=== PATIENT | male | born 1945 | race Caucasian/White ===

== ENCOUNTER → 2019-08-06 | Outpatient (CLI) | payer MEDICARE, OTHER ==
[~2019-08-06] MED LIST: ASPI-875 PO; CITA40TA19 PO; CYAN10007 PO; MULT-963 PO; OLME5TAB3 PO; OMEP40CA36 PO; PRAV40TA PO; VITA100T6 PO
== END ==
LOC: CARD 13:34
PROVIDERS: ATTEND Physician Assistant
DX: I51.7 Cardiomegaly (principal); I65.29 Occlusion and stenosis of unspecified carotid artery; I10 Essential (primary) hypertension; E78.2 Mixed hyperlipidemia; I27.0 Primary pulmonary hypertension
CPT/HCPCS: 93306

== ENCOUNTER → 2019-08-07 | Outpatient (CLI) | payer MEDICARE, OTHER ==
--- NOTE | 2019-08-07 13:03 | Diagnostic Imaging Report ---
INDICATION: History of renal calculi. Follow-up. COMPARISON: None. FINDINGS: Two frontal radiographic views of the abdomen were obtained and demonstrate nondistended loops of small bowel. There is no large collection of free intraperitoneal air. Multiple extraosseous rounded calcifications are noted in the right upper abdominal quadrant, but these appear to reside lateral to the renal shadow. No unexpected radiopaque foreign bodies are seen. Osseous structures show no acute abnormalities. IMPRESSION: 1. Extraosseous calcifications in the right upper abdominal quadrant, which are felt to be on the basis of debris within the large or small bowel. Cholelithiasis is also a consideration. 2. No definite renal calculi. 3. Nonobstructive small bowel gas pattern. Dictated by: Dictated on workstation # [id number]
== END ==
LOC: RAD FS 11:15
PROVIDERS: ATTEND Urology
DX: Z87.442 Personal history of urinary calculi (principal)
CPT/HCPCS: 74018

== ENCOUNTER → 2019-09-07 | Outpatient (CLI) | payer MEDICARE, OTHER ==
[~2019-09-07] VITALS: Ht 170 cm; Wt 87.0 kg
[~2019-09-07] MED LIST changes: +CATHETER FLUSH 10 ML SYR IV PRN
[2019-09-07 09:50] VITALS: BP 145/71
[2019-09-07 09:59] VITALS: BP 129/70
--- NOTE | 2019-09-07 17:02 | STRESS TEST ---
DATE OF SERVICE: 09/07/2019 EXERCISE MYOVIEW STRESS TEST REPORT REFERRING PHYSICIAN: Dr. Yap and Dr. Marshall. Baseline heart rate is 56. Baseline blood pressure 150/77. Baseline EKG is sinus rhythm with no ischemic changes. In summary, the patient was injected with 10.13 mCi of technetium-99 Myoview and the resting images were obtained. Then, the patient started exercising with a baseline heart rate, blood pressure and EKG mentioned above. The patient was able to exercise for a total of 7 minutes 20 seconds on standard Ulices protocol. With peak exercise level, EKG was showing minimal nondiagnostic changes. Blood pressure was 200/79. During recovery, heart rate and blood pressure returned to baseline. EKG returned to baseline. The resting and stress images were reviewed and compared in the short axis, horizontal long axis, and vertical long axis views. Review of the images showed diaphragmatic attenuation with no significant ischemia or infarction. SSS is 2, SDS 2, TID value 1.03. On the gated images, the left ventricle appeared to be normal size with normal contractility. Calculated ejection fraction 63%. CONCLUSION: 1. Fair exercise tolerance, a total of 7 minutes 20 seconds on standard Ulices protocol, total of 8.9 METS achieving 93% of maximum expected heart rate. 2. Severe hypertensive response to exercise with peak blood pressure 200/79 returned to baseline during recovery. 3. Nondiagnostic EKG changes with exercise returned to baseline during recovery. 4. Diaphragmatic attenuation with no significant ischemia or infarction on SPECT images. 5. Normal left ventricular size with normal contractility. Calculated ejection fraction 63%. Job ID: [id number] DocumentID: [id number] Dictated Date: 09/07/2019 12:33:34 Home Appliances Mechanic Date: 09/07/2019 17:01:28 Dictated By: DOUGLAS COLLINS MD
== END ==
LOC: CARD 07:51
PROVIDERS: ATTEND Physician Assistant
DX: I65.23 Occlusion and stenosis of bilateral carotid arteries (principal); E78.2 Mixed hyperlipidemia; I27.0 Primary pulmonary hypertension
CPT/HCPCS: 78452; 93017

== ENCOUNTER → 2020-08-05 | Outpatient (CLI) | payer MEDICARE, OTHER ==
[~2020-08-05] MED LIST changes: -CATHETER FLUSH 10 ML SYR IV PRN
--- NOTE | 2020-08-05 11:49 | Diagnostic Imaging Report ---
INDICATION: HX OF KIDNEY STONES. TECHNIQUE: 2 supine views of the abdomen 10:12 AM CORRELATION STUDY: 08/07/2019 FINDINGS: Multiple calcifications of the right upper quadrant are again demonstrated. Given the persistent nature, may be reflective of perhaps gallstones or, less likely, granulomas within the liver. No definitive calcification in unexpected location of the right renal silhouette. There are small calcifications over the inferior pole of the left kidney, 4 mm in size. Overlying bowel gas pattern appears nonobstructed. IMPRESSION: 1. Probable small stone over the inferior pole of the left kidney. 2. Calcifications in the right upper quadrant are again demonstrated. Given persistent nature, favors perhaps gallstones or perhaps hepatic granulomas. One of these does project over the superior pole of the right kidney. Dictated by: Dictated on workstation # [id number]
== END ==
LOC: RAD FS 10:08
PROVIDERS: ATTEND Urology
DX: N28.89 Other specified disorders of kidney and ureter (principal); Z87.442 Personal history of urinary calculi
CPT/HCPCS: 74018

== ENCOUNTER → 2020-08-17 | Outpatient (CLI) | payer MEDICARE, OTHER ==
--- NOTE | 2020-08-17 13:48 | Diagnostic Imaging Report ---
INDICATION: Palpable lump right breast. COMPARISON: 10/12/2013. TECHNIQUE: Unilateral right 2D and 3D diagnostic mammography was performed with CAD. FINDINGS: There is a moderate amount of fibroglandular tissue in the retroareolar right breast, consistent with gynecomastia. No discrete mass is seen. There is milder gynecomastia in the retroareolar left breast which was obtained for comparison purposes. No suspicious microcalcifications are seen. IMPRESSION: Probable gynecomastia in the retroareolar right breast. Even so, an ultrasound of this area is recommended and will be performed today. ACR BI-RADS Category 0: Incomplete. (Needs additional imaging evaluation). Result letter will be mailed to the patient. Note: At least 10% of breast cancer is not imaged by mammography. Dictated by: Dictated on workstation # [id number]
--- NOTE | 2020-08-17 14:04 | Diagnostic Imaging Report ---
INDICATION: Right breast lump. COMPARISON: Correlation is made with the diagnostic mammogram from earlier this same day. FINDINGS: Sonographic interrogation of the retroareolar right breast was performed. There is an ill-defined area of hypoechogenicity, most consistent with gynecomastia. No discrete mass is seen. IMPRESSION: Findings are most suggestive of gynecomastia. ACR BI-RADS Category 2: Benign findings. Result letter will be mailed to the patient. Note: At least 10% of breast cancer is not imaged by mammography. Dictated by: Dictated on workstation # [id number]
== END ==
LOC: RAD 13:15
PROVIDERS: ATTEND Family Medicine
DX: N63.10 Unspecified lump in the right breast, unspecified quadrant (principal)
CPT/HCPCS: 76642; 77065; G0279

== ENCOUNTER → 2021-02-03 | Outpatient (CLI) | payer MEDICARE, OTHER ==
--- NOTE | 2021-02-03 15:30 | Diagnostic Imaging Report ---
INDICATION: Follow-up of nephrolithiasis. TECHNIQUE: Single supine view of the abdomen 11:05 AM CORRELATION STUDY: 08/05/2020. FINDINGS: Large amount of overlying bowel gas and stool obscures detail. Multiple calcifications of the right upper quadrant are again demonstrated. Overall generally stabilized position. These are somewhat indeterminate but appear to be largely outside the renal silhouette and could be perhaps gallstones or additional soft tissue calcifications. The previously noted small calcification in the inferior pole of left kidney is not visualized at follow-up. Mild loss of height, particularly the L1 vertebral body. Advanced degenerative changes of bilateral hips. IMPRESSION: 1. Calcifications of the right upper quadrant overall appear unchanged. Likely outside the renal silhouette could be reflective of gallstones or alternative areas of calcification. 2. Previously noted calcifications over the inferior pole of left kidney not visualized at follow-up. Dictated by: Dictated on workstation # [id number]
== END ==
LOC: RAD FS 10:51
PROVIDERS: ATTEND Urology
DX: N28.89 Other specified disorders of kidney and ureter (principal)
CPT/HCPCS: 74018

== ENCOUNTER → 2021-10-06 | Outpatient (CLI) | payer MEDICARE, OTHER ==
--- NOTE | 2021-10-06 15:09 | Diagnostic Imaging Report ---
INDICATION: Follow up kidney stones. TIME OF EXAM: 11:20 AM. COMPARISON: Correlation is made with prior abdominal radiograph from 02/03/2021. Right upper quadrant calcifications appear to be similar to prior exam. The more medially located calcific density appears to overlie the renal shadow and may represent a renal calculus. The more laterally located calcifications are indeterminate but could potentially be in the gallbladder. No left-sided urinary tract calculi are seen. The bowel gas pattern is unremarkable. IMPRESSION: Stable KUB when compared to exam from 02/03/2021. Dictated by: Dictated on workstation # [id number]
== END ==
LOC: RAD FS 11:09
PROVIDERS: ATTEND Urology
DX: N20.0 Calculus of kidney (principal)
CPT/HCPCS: 74018

== ENCOUNTER 2021-12-06 20:37 | Outpatient (CLI) | payer MEDICARE, OTHER | END 2021-12-07 06:19 | disposition home or self-care (01) | LOC: SLEEP 20:37 | PROVIDERS: ATTEND Otolaryngology Otolaryngology/Facial Plastic Surgery | DX: G47.33 Obstructive sleep apnea (adult) (pediatric) (principal); G47.31 Primary central sleep apnea | CPT/HCPCS: 95811 ==

== ENCOUNTER → 2022-01-15 | Outpatient (CLI) | payer MEDICARE, OTHER ==
[~2022-01-15] MED LIST changes: +RT-ALBUTEROL SULF 2.5 MG/3 ML PRE-MIX VIAL INH ONE
--- NOTE | 2022-01-15 14:12 | Diagnostic Imaging Report ---
Indication: Cough and shortness of breath PA and lateral chest Heart size and pulmonary vascularity are normal. Lungs are clear. There are no effusions or pneumothoraces. IMPRESSION: No acute abnormalities in the chest Dictated by: Dictated on workstation # [id number]
== END ==
LOC: RT 13:55
PROVIDERS: ATTEND Nurse Practitioner Family
DX: R05.9 Cough, unspecified (principal); R06.02 Shortness of breath; R06.00 Dyspnea, unspecified
CPT/HCPCS: 71046; 94060; 94726; 94729

== ENCOUNTER → 2022-03-30 | Outpatient (CLI) | payer MEDICARE, OTHER ==
[~2022-03-30] MED LIST changes: -RT-ALBUTEROL SULF 2.5 MG/3 ML PRE-MIX VIAL INH ONE
--- NOTE | 2022-03-30 14:05 | Diagnostic Imaging Report ---
PROCEDURE: CT sinuses without contrast TECHNIQUE: Multiple contiguous axial images were obtained through the sinuses without the use of intravenous contrast. Coronal and sagittal reformations were then performed. Auto Exposure Controls were utilized during the CT exam to meet ALARA standards for radiation dose reduction. INDICATION: Chronic sinusitis. FINDINGS: There is some mucosal thickening of the frontal sinus. There is opacification of multiple bilateral ethmoid air cells. Minimal mucosal disease of the sphenoid sinus is seen. Left maxillary sinus is hypoplastic. There is some minimal mucosal thickening of bilateral maxillary sinuses. No air-fluid levels are seen. Mastoids are well aerated. There is thickening in the ostiomeatal complexes bilaterally. Nasal septum is midline. There is a jennifer bullosa on the right. IMPRESSION: Paranasal sinus mucosal disease. No air-fluid levels are identified. Dictated by: Dictated on workstation # [id number]
== END ==
LOC: RAD FS 09:59
PROVIDERS: ATTEND Otolaryngology Otolaryngology/Facial Plastic Surgery
DX: J32.9 Chronic sinusitis, unspecified (principal)
CPT/HCPCS: 70486

== ENCOUNTER → 2022-07-20 | Outpatient (CLI) | payer MEDICARE, OTHER ==
[~2022-07-20] MED LIST changes: +CATHETER FLUSH 10 ML SYR IV PRN; +HOLD METFORMIN - RECEIVED CONTRAST 20 ML VIAL IV SCH; +IOHEXOL 350 MG/ML 100 ML (OMNIPAQUE 350) VIAL IV ONE; +NS 100 ML (IVPB) BAG IV ONE
[2022-07-20 09:29] LABS: CREATININE SERUM 0.97 MG/DL (0.60-1.30)
--- NOTE | 2022-07-20 10:52 | Diagnostic Imaging Report ---
PROCEDURE: CT chest with contrast only. TECHNIQUE: Multiple contiguous axial images were obtained through the chest after administration of intravenous contrast. Auto Exposure Controls were utilized during the CT exam to meet ALARA standards for radiation dose reduction. INDICATION: Chronic cough. COMPARISON: Chest radiograph 01/15/2022. FINDINGS: Mild biapical scarring. Lungs are otherwise clear. No pleural effusion or pneumothorax. No endobronchial lesions. No pleural effusion or pneumothorax. Normal heart size. No pericardial effusion. No lymphadenopathy. Advanced coronary artery calcifications. Chronic left clavicle fracture. Compression fracture of T12 resulting in approximately 50% height loss is stable compared to 01/15/2022. Gynecomastia on the right. Cholelithiasis without secondary findings of cholecystitis. Nonobstructing renal stones in the partially visualized kidneys bilaterally. IMPRESSION: 1. No acute CT findings in the chest. Mild biapical scarring. 2. Cholelithiasis without cholecystitis. 3. Advanced coronary artery calcifications. 4. Chronic fractures of the left clavicle and T12. No acute osseous findings. 5. Gynecomastia. Dictated by: Dictated on workstation # [id number]
== END ==
LOC: LAB FS 08:47
PROVIDERS: ATTEND Family Medicine
DX: I25.10 Atherosclerotic heart disease of native coronary artery without angina pectoris (principal); K80.20 Calculus of gallbladder without cholecystitis without obstruction; N62 Hypertrophy of breast; R05.3 Chronic cough
CPT/HCPCS: 36415; 71260; 82565; 84520; Q9967

== ENCOUNTER → 2022-10-11 | Outpatient (CLI) | payer MEDICARE, OTHER ==
[~2022-10-11] MED LIST changes: -CATHETER FLUSH 10 ML SYR IV PRN; -HOLD METFORMIN - RECEIVED CONTRAST 20 ML VIAL IV SCH; -IOHEXOL 350 MG/ML 100 ML (OMNIPAQUE 350) VIAL IV ONE; -NS 100 ML (IVPB) BAG IV ONE
== END ==
LOC: LAB FS 16:15
PROVIDERS: ATTEND Otolaryngology Otolaryngology/Facial Plastic Surgery
DX: E03.9 Hypothyroidism, unspecified (principal)
CPT/HCPCS: 36415; 84443

== ENCOUNTER → 2022-11-02 | Outpatient (CLI) | payer MEDICARE, OTHER | LOC: CARD 11:08 | PROVIDERS: ATTEND Family Medicine | DX: I10 Essential (primary) hypertension (principal); I25.10 Atherosclerotic heart disease of native coronary artery without angina pectoris | CPT/HCPCS: 93306 ==

== ENCOUNTER 2022-12-20 20:25 | Emergency (ER) | payer MEDICARE, OTHER ==
[~2022-12-20] VITALS: Ht 170 cm; Wt 82.5 kg
[2022-12-20 20:44] LABS: BASOPHILS % (AUTO) 0 % (0-10); EOSINOPHILS # (AUTO) 0.4 10^3/uL (0.0-0.3); EOSINOPHILS % (AUTO) 2 % (0-10); HEMATOCRIT 39 % (40-54); HEMOGLOBIN 13.7 g/dL (13.3-17.7); LYMPHOCYTES # (AUTO) 1.7 10^3/uL (1.0-4.0); LYMPHOCYTES % (AUTO) 10 % (12-44); MEAN CORPUSCULAR HEMOGLOBIN 33 pg (25-34); MEAN CORPUSCULAR HGB CONC 35 g/dL (32-36); MEAN CORPUSCULAR VOLUME 94 fL (80-99); MEAN PLATELET VOLUME 8.5 fL (9.0-12.2); MONOCYTES # (AUTO) 0.5 10^3/uL (0.0-1.0); MONOCYTES % (AUTO) 3 % (0-12); NEUTROPHILS # (AUTO) 13.2 10^3/uL (1.8-7.8); NEUTROPHILS % (AUTO) 84 % (42-75); PLATELET COUNT 253 10^3/uL (130-400); WHITE BLOOD COUNT 15.8 10^3/uL (4.3-11.0)
[2022-12-20] MEDS ORDERED: KETOROLAC 15 MG/ML VIAL IVP STA (20:44)
[2022-12-20] MEDS ORDERED: hydrALAZINE (APESOLINE) 20 MG/ML VIAL IV STA (20:44)
[2022-12-20] MEDS ORDERED: PANTOPRAZOLE 40 MG (PROTONIX) VIAL IV STA (20:44)
[2022-12-20 20:45] LABS: BILIRUBIN,URINE NEGATIVE (NEGATIVE); CLARITY,URINE CLEAR; COLOR,URINE YELLOW; GLUCOSE, URINE (UA) NEGATIVE (NEGATIVE); KETONES,URINE NEGATIVE (NEGATIVE); LEUKOCYTE ESTERASE ,URINE NEGATIVE (NEGATIVE); NITRITE,URINE NEGATIVE (NEGATIVE); PH,URINE 6.5 (5-9); PROTEIN,URINE NEGATIVE (NEGATIVE)
[2022-12-20 20:52] LABS: BACTERIA,URINE NEGATIVE /HPF; SQUAMOUS EPITHELIAL CELL,UR RARE /HPF; WBC,URINE RARE /HPF
--- NOTE | 2022-12-20 21:00 | ED Abdominal Pain ---
General Chief Complaint: Abdominal/GI Problems Stated Complaint: CONGESTION,ABD PAIN,HIGH BP Source of Information: Patient History of Present Illness Date Seen by Provider: Dec 20, 2022 Time Seen by Provider: 20:31 Initial Comments 77-year-old male presenting with complaints of abdominal discomfort that started at 1400 today. He denies doing anything to cause the pain to start. He cannot be more specific about what the pain is when asked if it was sharp cramping dull aching pressure or to describe what the pain was he started describing that he area of his abdomen concerning but again would never give any details about the type of pain. Even with prompting he still would never answer the type of pain. He was asked if he had pain like this before and he said never for this long but then asked if he had the pain in the past but it usually went away he said no. He denies having headache or change in his vision, no chest pain no shortness of breath. He states that the pain is in the middle of his belly and does not radiate into his chest or into his back. He states that it is approximately a 5 inch diameter. He has had some mild nausea but no vomiting. He stated eating and drinking did not make the pain any different. Movement and palpation does not make any difference on the pain. He denies having any pain or burning with urination. He has no complaints of diarrhea. He denies fever or chills. Timing/Duration: 4-6 Hours Severity/Quality: Moderate, Other (patient refuses to describe the pain and just says its a "discomfort") Location: Epigastric, Periumbilical Radiation: No Radiation Activities at Onset: None Associated Symptoms: Back Pain (chronic back pain); No Chest Pain, No Diaphoresis, No Fever/Chills, No Fatigue, No Headache, No Heartburn, No Rash, No Shortness of Air, No Swelling/Mass in Abdomen, No Syncope, No Weakness Allergies and Home Medications Allergies Coded Allergies: naproxen (Unverified Allergy, Unknown, 09/07/19) Patient Home Medication List Home Medication List Reviewed: Yes Aspirin (Coal Aspirin) 81 Mg Tablet.dr 81 MG PO DAILY, (Reported) Entered as Reported by: MEHDI GARCIA on 12/02/12 1244 Citalopram Hydrobromide (Celexa) 40 Mg Tablet, 1 EACH PO DAILY, (Reported) Entered as Reported by: MEHDI GARCIA on 12/02/12 124 Cyanocobalamin (Vitamin B12) 1,000 Mcg Tablet.sa, 1,000 MCG PO, (Reported) Entered as Reported by: MEHDI GARCIA on 12/02/121243 Multivitamin (Multi-Vitamin Daily) 1 Each Tablet, 1 EACH PO, (Reported) Entered as Reported by: MEHDI GARCIA on 12/02/12 124 Olmesartan Medoxomil (Benicar) 5 Mg Tablet, 1 EACH PO 2 tabs daily, (Reported) Entered as Reported by: MEHDI GARCIA on 12/02/12 124 Omeprazole (Omeprazole) 40 Mg Capsule.dr, 40 MG PO 2 tabs daily, (Reported) Entered as Reported by: MEHDI GARCIA on 12/02/121243 Pravastatin Sodium (Pravachol) 40 Mg Tablet, 40 MG PO DAILY, (Reported) Entered as Reported by: MEHDI GARCIA on 12/02/121243 Vitamin E Acid Succinate (Vitamin E) 100 Unit Tablet, 100 UNIT PO, (Reported) Entered as Reported by: MEHDI GARCIA on 12/02/121243 Review of Systems Review of Systems Constitutional: No chills, No fever EENTM: No Symptoms Reported Respiratory: No Symptoms Reported Cardiovascular: No Symptoms Reported Gastrointestinal: See HPI Genitourinary: Denies Flank Pain, Denies Pain Musculoskeletal: see HPI Skin: No change in color Psychiatric/Neurological: No Symptoms Reported Past Acnlfvp-Mqlemu-Lvdgpm Hx Past Medical History Surgery/Hospitalization HX: Hypertension Physical Exam Vital Signs Vital Signs - First Documented 12/20/22 20:37 Temp 36.2 Pulse 54 Resp 18 B/P (MAP) 197/74 (115) Pulse Ox 95 O2 Delivery Room Air Capillary Refill : Height/Weight/BMI Height: '" Weight: lbs. oz. kg; 30.10 BMI Method: General Appearance: WD/WN, no apparent distress Respiratory: chest non-tender, lungs clear, normal breath sounds, no respiratory distress, no accessory muscle use Cardiovascular: normal peripheral pulses, regular rate, rhythm Gastrointestinal: normal bowel sounds, non tender, soft, no pulsatile mass Extremities: normal range of motion, normal capillary refill Neurologic/Psychiatric: alert Skin: normal color, warm/dry Progress/Results/Core Measures Results/Orders Lab Results Laboratory Tests Test 12/20/22 20:28 12/20/22 20:38 12/20/22 21:20 Range/Units Urine Color YELLOW Urine Clarity CLEAR Urine pH 6.5 5-9 Urine Specific [place] 1.020 1.016-1.022 Urine Protein NEGATIVE NEGATIVE Urine Glucose (UA) NEGATIVE NEGATIVE Urine Ketones NEGATIVE NEGATIVE Urine Nitrite NEGATIVE NEGATIVE Urine Bilirubin NEGATIVE NEGATIVE Urine Urobilinogen 0.2 < = 1.0 MG/DL Urine Leukocyte Esterase NEGATIVE NEGATIVE Urine RBC (Auto) NEGATIVE NEGATIVE Urine RBC NONE /HPF Urine WBC RARE /HPF Urine Squamous Epithelial Cells RARE /HPF Urine Crystals NONE /LPF Urine Bacteria NEGATIVE /HPF Urine Casts NONE /LPF Urine Mucus NEGATIVE /LPF Urine Culture Indicated NO White Blood Count 15.8 H 4.3-11.0 10^3/uL Red Blood Count 4.16 L 4.30-5.52 10^6/uL Hemoglobin 13.7 13.3-17.7 g/dL Hematocrit 39 L 40-54 % Mean Corpuscular Volume 94 80-99 fL Mean Corpuscular Hemoglobin 33 25-34 pg Mean Corpuscular Hemoglobin Concent 35 32-36 g/dL Red Cell Distribution Width 12.1 10.0-14.5 % Platelet Count 253 130-400 10^3/uL Mean Platelet Volume 8.5 L 9.0-12.2 fL Immature Granulocyte % (Auto) 0 % Neutrophils (%) (Auto) 84 H 42-75 % Lymphocytes (%) (Auto) 10 L 12-44 % Monocytes (%) (Auto) 3 0-12 % Eosinophils (%) (Auto) 2 0-10 % Basophils (%) (Auto) 0 0-10 % Neutrophils # (Auto) 13.2 H 1.8-7.8 10^3/uL Lymphocytes # (Auto) 1.7 1.0-4.0 10^3/uL Monocytes # (Auto) 0.5 0.0-1.0 10^3/uL Eosinophils # (Auto) 0.4 H 0.0-0.3 10^3/uL Basophils # (Auto) 0.0 0.0-0.1 10^3/uL Immature Granulocyte # (Auto) 0.1 0.0-0.1 10^3/uL Neutrophils % (Manual) 75 % Lymphocytes % (Manual) 17 % Monocytes % (Manual) 3 % Eosinophils % (Manual) 3 % Basophils % (Manual) 0 % Band Neutrophils 2 % Sodium Level 134 L 135-145 MMOL/L Potassium Level 4.0 3.6-5.0 MMOL/L Chloride Level 100 98-107 MMOL/L Carbon Dioxide Level 24 21-32 MMOL/L Anion Gap 10 5-14 MMOL/L Blood Urea Nitrogen 8 7-18 MG/DL Creatinine 0.98 0.60-1.30 MG/DL Estimat Glomerular Filtration Rate 79 BUN/Creatinine Ratio 8 Glucose Level 135 H 70-105 MG/DL Calcium Level 9.0 8.5-10.1 MG/DL Corrected Calcium 8.9 8.5-10.1 MG/DL Total Bilirubin 0.4 0.1-1.0 MG/DL Aspartate Amino Transf (AST/SGOT) 20 5-34 U/L Alanine Aminotransferase (ALT/SGPT) 13 0-55 U/L Alkaline Phosphatase 124 40-136 U/L Total Protein 7.1 6.4-8.2 GM/DL Albumin 4.1 3.2-4.5 GM/DL Lipase 18 8-78 U/L Influenza Type A (RT-PCR) Not Detected Not Detecte Influenza Type B (RT-PCR) Not Detected Not Detecte SARS-CoV-2 RNA (RT-PCR) Not Detected Not Detecte My Orders Orders - LAHSELL SIMMONS MD Comprehensive Metabolic Panel (12/20/22 20:29) Lipase (12/20/22 20:29) Ua Culture If Indicated (12/20/22 20:29) Ed Iv/Invasive Line Start (12/20/22 20:29) Cbc With Automated Diff (12/20/22 20:29) Covid 19 Inhouse Test (12/20/22 20:29) Influenza A And B By Pcr (12/20/22 20:29) Ct Abdomen/Pelvis W (12/20/22 20:44) Hydralazine Injection (Apresoline Inject (12/20/22 20:44) Pantoprazole Injection (Protonix Injecti (12/20/22 20:44) Ketorolac Injection (Toradol Injection) (12/20/22 20:44) Manual Differential (12/20/22 20:38) Iohexol Injection (Omnipaque 350 Mg/Ml 1 (12/20/22 21:15) Received Contrast (Hold Metformin- Contr (12/20/22 21:15) Sodium Chloride Flush (Catheter Flush Sy (12/20/22 21:15) Ns (Ivpb) (Sodium Chloride 0.9% Ivpb Bag (12/20/22 21:15) Medications Given in ED Current Medications Medications Dose Ordered Sig/Librado Route Start Time Stop Time Status Last Admin Dose Admin Iohexol 80 ml ONCE ONCE IV 12/20/22 21:15 12/20/22 21:16 DC 12/20/22 21:42 80 ML Sodium Chloride 10 ml NEEDED PRN IV 12/20/22 21:15 12/20/22 22:36 DC 12/20/22 21:43 10 ML Sodium Chloride 100 ml ONCE ONCE IV 12/20/22 21:15 12/20/22 21:16 DC 12/20/22 21:42 100 ML Vital Signs/I&O 12/20/22 12/20/22 20:37 22:25 Temp 36.2 36.8 Pulse 54 79 Resp 18 20 B/P (MAP) 197/74 (115) 110/69 Pulse Ox 95 96 O2 Delivery Room Air Room Air Progress Progress Note #1: Progress Note Potential diagnosis of gastritis, constipation, colitis, diverticulitis, ischemic colitis, peptic ulcer disease. Obtain peripheral IV access and send labs for complete blood count, comprehensive metabolic profile, lipase, urinalysis. Obtain a CT scan of the abdomen and pelvis with IV contrast looking for signs of ischemic bowel, diverticulitis, colitis, constipation. Normal saline 1 L IV fluid bolus for hydration, Protonix 40 mg IV for possible gastritis, Toradol 15 mg IV for abdominal pain and inflammation. Progress Note #2: Progress Note 2117 complete blood count shows elevated white blood cell count of 15.8 thousand. Hemoglobin was not showing anemia as it was at 13.7. There was a slight left shift with 75% neutrophils, 17 lymphocytes, 2% bands. Comprehensive metabolic profile did not show any acute significant abnormality to account for his abdominal discomfort. His creatinine was normal at 0.98. Glucose was slightly elevated at 135. Lipase was normal at 18. Liver enzymes were not elevated. Urinalysis showed specific gravity of 1.020. There is no nitrites, leukocyte esterase, bacteria to indicate UTI. After hydralazine blood pressure was down to 150/73. Progress Note #3: Time: 22:[address] scanning of the abdomen and pelvis read by the radiologist shows findings concerning for acute cholecystitis with a 7 mm stone in the cystic duct. There is gallbladder wall thickening and mild pericholecystic fluid. His liver enzymes are not elevated and his pain is now down to a 0. I called and spoke with the on-call surgeon, Dr. Castano. After reviewing the patient's presentation and his elevated white blood cell count with normal LFTs and findings on CT concerning for a gallstone in the cystic duct and some inflammation of the gallbladder he advised if the patient was having continued pain he could be admitted for pain control and plan on surgery tomorrow. Otherwise he could go home and have nothing to eat or drink after midnight and then call the office in the morning and he could be seen or they could arrange for him to have surgery tomorrow with he was still having pain and concerns otherwise it could be scheduled next week sometime or when it was convenient for him. If his pain worsens or return nature he has uncontrolled nausea and vomiting then he should be seen again as he may need to stay overnight for having pain control and surgery. When reviewing options with the patient he stated since his pain was gone now he would like to go home. They will call the office in the morning and see about follow-up and when to get surgery done. Diagnostic Imaging Diagonstic Imaging: CT Plain Films/CT/US/NM/MRI: abdomen, pelvis Comments [facility], [place] NAME: JOY WALKER Mitzy [facility] REC#: [id number] PT STATUS: REG ER : 1945 PHYSICIAN: LASHELL SIMMONS MD ADMIT DATE: 12/20/22/ER FS Signed Date of Exam:12/20/22 CT ABDOMEN/PELVIS W PROCEDURE: CT abdomen and pelvis with contrast. TECHNIQUE: Multiple contiguous axial images were obtained through the abdomen and pelvis after administration of intravenous contrast. Auto Exposure Controls were utilized during the CT exam to meet ALARA standards for radiation dose reduction. All CT scans use one or more of the following dose optimizing techniques: automated exposure control, MA and/or KvP adjustment based on patient size and exam type or iterative reconstruction. INDICATION: Epigastric and periumbilical pain. FINDINGS: There is mild linear atelectasis and/or scarring in the lung bases. No focal hepatic, pancreatic, adrenal gland, splenic or renal abnormality is identified. There are multiple stones present within the gallbladder including in the neck. Additional calculus of approximately 0.7 cm in diameter appears to reside within the cystic duct. There is gallbladder wall thickening and pericholecystic fluid. Mild intrahepatic biliary ductal dilatation is also suspected. Stomach appears mildly thickened although this could be due to incomplete distention. There is no evidence of free fluid within the abdomen or pelvis. Numerous sigmoid diverticula are present without associated inflammation. Bladder is incompletely distended which limits evaluation. There are surgical findings at the prostate gland. There is mild compression deformity of T12 vertebral body without hematoma suggesting its a chronic finding. IMPRESSION: 1. Findings are suggestive of acute cholecystitis likely due to cystic duct obstruction. There may be secondary biliary ductal dilatation as well. This could be related to previous stone passage. 2. There is also gastric mural thickening suggestive of possible gastritis which could be in the setting of peptic ulcer disease. Dictated by: Dictated on workstation # [id number] Dict: 12/20/222152 Trans: 12/20/222204 [facility] [id number] Interpreted by: SHERON ANDRADE MD Electronically signed by: SHERON ANDRADE MD 12/20/222204 Reviewed: Reviewed by Me Departure Impression Primary Impression: Cholecystitis with cholelithiasis Qualified Codes: K80.42 - Calculus of bile duct with acute cholecystitis without obstruction Additional Impressions: Periumbilical abdominal pain Elevated blood pressure reading with diagnosis of hypertension Disposition: 01 HOME, SELF-CARE Condition: Improved Departure-Patient Inst. Decision time for Depature: 22:17 Referrals: PATRICIA CASTANO PANKAJ K MD (PCP/Family) Primary Care Physician Patient Instructions: Gallstones ED, High Blood Pressure ED, Gallbladder Diet Add. Discharge Instructions: Nothing to eat or drink after midnight and call Dr. Castano in the morning to see when he wants to have the gallbladder removed. If you are still having pain or your symptoms are worsening then they could do surgery tomorrow, otherwise he can schedule surgery for you as an outpatient and have you follow a low fat bland diet until you have surgery. All discharge instructions reviewed with patient and/or family. Voiced understanding. LASHELL SIMMONS MD Dec 20, 2022 21:00
[2022-12-20 21:02] LABS: BAND NEUTROPHILS 2 %; BASOPHILS % (MANUAL) 0 %; EOSINOPHILS % (MANUAL) 3 %; LYMPHOCYTES % (MANUAL) 17 %; MONOCYTES % (MANUAL) 3 %; NEUTROPHILS % (MANUAL) 75 %
[2022-12-20 21:04] LABS: ALBUMIN 4.1 GM/DL (3.2-4.5); BILIRUBIN,TOTAL 0.4 MG/DL (0.1-1.0); CREATININE SERUM 0.98 MG/DL (0.60-1.30); TOTAL PROTEIN 7.1 GM/DL (6.4-8.2)
[2022-12-20] MEDS ORDERED: NS 100 ML (IVPB) BAG IV ONE (21:15)
[2022-12-20] MEDS ORDERED: IOHEXOL 350 MG/ML 100 ML (OMNIPAQUE 350) VIAL IV ONE (21:15)
[2022-12-20] MEDS ORDERED: HOLD METFORMIN - RECEIVED CONTRAST 20 ML VIAL IV SCH (21:15)
[2022-12-20] MEDS: CATHETER FLUSH 10 ML SYR IV PRN ×2 (21:42→21:43)
--- NOTE | 2022-12-20 22:00 | Diagnostic Imaging Report ---
PROCEDURE: CT abdomen and pelvis with contrast. TECHNIQUE: Multiple contiguous axial images were obtained through the abdomen and pelvis after administration of intravenous contrast. Auto Exposure Controls were utilized during the CT exam to meet ALARA standards for radiation dose reduction. All CT scans use one or more of the following dose optimizing techniques: automated exposure control, MA and/or KvP adjustment based on patient size and exam type or iterative reconstruction. INDICATION: Epigastric and periumbilical pain. FINDINGS: There is mild linear atelectasis and/or scarring in the lung bases. No focal hepatic, pancreatic, adrenal gland, splenic or renal abnormality is identified. There are multiple stones present within the gallbladder including in the neck. Additional calculus of approximately 0.7 cm in diameter appears to reside within the cystic duct. There is gallbladder wall thickening and pericholecystic fluid. Mild intrahepatic biliary ductal dilatation is also suspected. Stomach appears mildly thickened although this could be due to incomplete distention. There is no evidence of free fluid within the abdomen or pelvis. Numerous sigmoid diverticula are present without associated inflammation. Bladder is incompletely distended which limits evaluation. There are surgical findings at the prostate gland. There is mild compression deformity of T12 vertebral body without hematoma suggesting its a chronic finding. IMPRESSION: 1. Findings are suggestive of acute cholecystitis likely due to cystic duct obstruction. There may be secondary biliary ductal dilatation as well. This could be related to previous stone passage. 2. There is also gastric mural thickening suggestive of possible gastritis which could be in the setting of peptic ulcer disease. Dictated by: Dictated on workstation # [id number]
[2022-12-20 22:25] VITALS: BP 110/69
[2022-12-21] MEDS ORDERED: ATOR10TA PO (10:39)
[2022-12-21] MEDS ORDERED: BUSP5TAB59 PO (10:39)
[2022-12-21] MEDS ORDERED: LOSA1TAB20 PO (10:39)
[2022-12-21] MEDS ORDERED: MIRA50TA PO (10:39)
[2022-12-21] MEDS ORDERED: OMEP20CA18 PO (10:39)
[2022-12-21] MEDS ORDERED: IBUP200C11 PO (10:39)
[2022-12-21] MEDS ORDERED: ESCI20TA PO (10:39)
[2022-12-21] MEDS ORDERED: CETI10CA PO (10:39)
[2022-12-21] MEDS ORDERED: ACHD5005 PO (12:30)
== END 2022-12-20 22:25 | disposition home or self-care (01) ==
LOC: EDUNIT# 20:25 → ER FS 20:26
DX: K80.10 Calculus of gallbladder with chronic cholecystitis without obstruction (principal); I10 Essential (primary) hypertension; Z20.822 Contact with and (suspected) exposure to COVID-19
CPT/HCPCS: 36415; 74177; 80053; 81000; 83690; 85007; 85027; 87636

== ENCOUNTER 2022-12-21 09:45 | Day surgery (SDC) | payer MEDICARE, OTHER ==
[2022-12-21] VITALS (12 sets, daily range): BP systolic 144–185; BP diastolic 72–90
[~2022-12-21] VITALS: Ht 170.2 cm; Wt 82.3 kg
[2022-12-21] MEDS ORDERED: ceFAZolin INJECTION 2,000 MG in NS (IVPB) 50 ML IV ONE (10:15)
[2022-12-21] MEDS: LACTATED RINGERS 1,000 ML IV PRN ×2 (10:16→13:16)
[2022-12-21] MEDS ORDERED: BUP/EPI 0.25% 1:200,000 (MARCAINE) 30 ML VIAL ONE (10:19)
[2022-12-21] MEDS ORDERED: BUP/EPI 0.25% 1:200,000 (MARCAINE) 30 ML VIAL INJ ONE (10:28)
[2022-12-21] MEDS: IOHEXOL 300 MG/ML 30 ML (OMNIPAQUE 300) VIAL INJ ONE ×2 (10:30→11:49)
[2022-12-21] MEDS ORDERED: CETI10CA PO (10:39)
[2022-12-21] MEDS ORDERED: ATOR10TA PO (10:39)
[2022-12-21] MEDS ORDERED: ESCI20TA PO (10:39)
[2022-12-21] MEDS ORDERED: BUSP5TAB59 PO (10:39)
[2022-12-21] MEDS ORDERED: ROCURONIUM 50 MG/5 ML (ZEMURON) VIAL IV ONE (10:39)
[2022-12-21] MEDS ORDERED: OMEP20CA18 PO (10:39)
[2022-12-21] MEDS ORDERED: ONDANSETRON 4 MG/2 ML (SDV) Z0FRAN ONE ×2 (10:39→14:15)
[2022-12-21] MEDS ORDERED: SEVOFLURANE (ULTANE) 15 ML INHAL SOLN ONE ×2 (10:39→12:14)
[2022-12-21] MEDS ORDERED: IBUP200C11 PO (10:39)
[2022-12-21] MEDS ORDERED: proPOfol 200 MG/20 ML (DIPRIVAN) VIAL IV ONE (10:39)
[2022-12-21] MEDS ORDERED: MIRA50TA PO (10:39)
[2022-12-21] MEDS ORDERED: LOSA1TAB20 PO (10:39)
[2022-12-21] MEDS ORDERED: LIDOCAINE PF 2% 5 ML (XYLOCAINE) VIAL ONE (10:39)
[2022-12-21] MEDS ORDERED: fentaNYL INJ 100 MCG/2 ML AMP ONE (10:40)
[2022-12-21] MEDS ORDERED: MIDAZOLAM 2 MG/2 ML (VERSED) VIAL ONE (10:40)
[2022-12-21] MEDS ORDERED: NEOSTIGMINE (BLOXIVERZ ) 1 MG/1ML 10 ML VIAL ONE (12:07)
[2022-12-21] MEDS ORDERED: GLYCOPYRROLATE 0.2 MG/ML (ROBINUL) 2 ML VIAL ONE (12:07)
--- NOTE | 2022-12-21 12:27 | Progress Note-Post Operative ---
Post-Operative Progess Note Surgeon (s)/Component Assembler Supervisor (s) Surgeon PATRICIA CASTANO DO Component Assembler Supervisor: Layton Pre-Operative Diagnosis CHOLELITHIASIS Post-Operative Diagnosis Acute Cholecystitis/Cholelithiasis with Cystic duct obstruction Procedure & Operative Findings Date of Procedure 12/21/22 Procedure Performed/Findings PROCEDURE: Laparoscopic cholecystectomy with intraoperative cholangiogram. COMPLICATIONS: None. PROCEDURE: The patient was taken to the operating suite and was prepped and draped in sterile fashion. A surgical pause was performed. Just superior to the umbilicus, a 12 mm incision was made. Dissection was taken down to the fascia, which was then scored and grasped with a Marion and the abdomen was then entered. An 0-Vicryl suture was placed in a arkvhx-ob-gvzhq fashion and a Brandt trocar was placed and secured. Pneumoperitoneum was achieved. A 5mm trochar place in the subxyphoid and 2 in the right upper quadrant. The gallbladder was then noted to be very edematous and erythematous. It was grasped at the fundus and taken in the superior direction. There was a lot of edema and fat around Goodwin's pouch which was grasped and taken in the infero-lateral direction. The cystic duct and cystic artery were then dissected out. Clip was placed on the distal portion of the cystic duct which was then partially transected. Had to then carefully tease out a large stone that was obstructing the cystic duct. Once I had gotten it out an arrow catheter was inserted into the duct. The cholangiogram was then performed. No filling defects and contrast made its way up the CBD, left and right hepatic and into the duodenum. Catheter was then removed and clips were placed on proximal portion of the cystic duct and then the duct was then transected. Clips were placed along the proximal and distal portion of the cystic artery which was then transected. I encountered a posterior branch of the cystic artery and it was also clipped. The upper grasper made a hole in the gallbladder and some purulent bile leaked out. Hook cautery was used to dissect the gallbladder from the gallbladder fossa achieving hemostasis. The gallbladder was placed in an Endobag and removed through the 12 mm trocar site. The abdomen was then reinspected. Copious amounts of irrigation were used to irrigate the abdomen and there were no signs of active bleeding. Hemostasis had been achieved. I looked around and found bilateral indirect inguinal hernias; picture taken. The 12 mm fascial defect was then closed with 0 Vicryl suture that had been placed in a [id number]-if-tvhak fashion. The abdomen was then desufflated, the trocars were removed. The abdomen was then washed and dried. The skin was then closed using 4-0 Monocryl in a subcuticular fashion. The abdomen was washed and dried and Skin Affix was place over incisions. Patient tolerated the procedure well without any complications and was taken to the recovery room in stable condition. Layton assisted on this case helping to make incisions, close incisions, identify anatomy and hold anatomy out of the way. Anesthesia Type GET Estimated Blood Loss Estimated blood loss (mL): scant Specimens/Packing Specimens Removed GB and contents PATRICIA CASTANO DO Dec 21, 2022 12:27
--- NOTE | 2022-12-21 12:29 | Anesthesia-General Post-Op ---
General Patient Condition Mental Status/LOC: Same as Preop Cardiovascular: Satisfactory Nausea/Vomiting: Absent Respiratory: Satisfactory Pain: Controlled Complications: Absent Post Op Complications Complications None Follow Up Care/Instructions Patient Instructions None needed. Anesthesia/Patient Condition Patient Condition Patient is doing well, no complaints, stable vital signs, no apparent adverse anesthesia problems. No complications reported per nursing. ROSALIND MIKE CRNA Dec 21, 2022 12:29
[2022-12-21] MEDS ORDERED: MEPERIDINE (DEMEROL) INJ 50 MG/ML IVP ONE (12:30)
[2022-12-21] MEDS ORDERED: ACHD5005 PO (12:30)
[2022-12-21] MEDS ORDERED: fentaNYL INJ 100 MCG/2 ML AMP IVP ONE (12:30)
--- NOTE | 2022-12-21 12:33 | Discharge Inst-Surgical ---
Discharge Inst-Surgical Depart Medication/Instructions New, Converted or Re-Newed RX: Transmitted to Pharmacy Patient Instructions Follow up Appt: Make appointment for 1 week. [phone] Instructions: No lifting greater than 20 pounds. No strenuous activity. May shower in 24 hours, no tub bath or soaking. Use incentive spirometer at home as directed. No Smoking Skin/Wound Care: May remove bandages in am. You need to leave the Dermabond on incision it will fall off on it's own. Symptoms to Report: Appetite Changes, Extremity Discoloration, Numbness/Tingling, Swelling Increased, Bleeding Excessive, Eyesight Changes, Pain Increased, Urine Color Change, Constipation(Persistent), Fever over 101 degree F, Pain/Pressure in chest, Urinating Difficulty, Cough Up/Vomit Blood, Heart Beat Irreg/Pounding, Pain/Pressure in jaw, Cramps in feet or legs, Lightheadedness, Pain/Pressure in shoulder, Diarrhea(Persistent), Memory Changes Suddenly, Questions/Concerns, Weight gain consecutive days, Dizziness/Fainting, Nausea/Vomiting, Shortness of Breath, Weight gain over 2 pounds If questions or concerns contact your physician Or seek help at emergency department. Activity Activity as Tolerated: Yes Activity Instructions: Avoid Stress to Incision Driving Instructions: No Driving/Refer to Diet Discharge Diet: Avoid Fatty Foods, Low Fat/Low Cholesterol If Any Problems/Questions/Issu: Contact Your Physician, Go to Emergency Room Skin/Wound Care Infection Signs and Symptoms: Increased Redness, Foul Odor of Wound, Increased Drainage, Skin Itchy or Has a Rash, Increased Swelling, Temperature Above 101 F Wound Care Comment: heating pad to shoulder or neck for pain tonight Bathing Instructions: Shower Stitches/Neymar/Dermabond Dis: Dermabond Ice Pack: Ice On and Off Site PATRICIA CASTANO DO Dec 21, 2022 12:33
[2022-12-21] MEDS: ONDANSETRON 4 MG/2 ML (SDV) Z0FRAN IVP PRN ×2 (12:47→13:06)
[2022-12-21] MEDS ORDERED: ONDANSETRON 4 MG/2 ML (SDV) Z0FRAN IVP ONE (14:15)
[2022-12-21] MEDS ORDERED: HYDROcodone/APAP 5 MG/325 MG (LORTAB) TAB PO ONE (15:00)
[2022-12-21] MEDS ORDERED: HYDROcodone/APAP 5 MG/325 MG (LORTAB) TAB ONE (15:02)
--- NOTE | 2022-12-21 15:26 | Diagnostic Imaging Report ---
INDICATION: Cholecystectomy. Operative cholangiogram performed in the routine fashion. 20.6 seconds of fluoroscopy time was used. 111 images were obtained. FINDINGS: Contrast injection demonstrates injection of the cystic duct stump. There is some extravasation at the injection site. There are no filling defects in the common bile duct; contrast passes to the duodenum without obstruction. IMPRESSION: Unremarkable operative cholangiogram. Dictated by: Dictated on workstation # [id number]
[2022-12-21] MEDS ORDERED: KETOROLAC 30 MG/ML VIAL ONE (15:27)
== END 2022-12-21 16:25 ==
LOC: SDC 09:45
PROVIDERS: ATTEND Surgery
DX: K80.12 Calculus of gallbladder with acute and chronic cholecystitis without obstruction (principal); G47.33 Obstructive sleep apnea (adult) (pediatric); E66.9 Obesity, unspecified; Z68.28 Body mass index [BMI] 28.0-28.9, adult; Z87.891 Personal history of nicotine dependence; Z99.81 Dependence on supplemental oxygen
CPT/HCPCS: 76000; 87081; 88304

== ENCOUNTER 2023-01-07 11:26 | Inpatient (IN) | payer MEDICARE, OTHER ==
[~2023-01-07] VITALS: Ht 172.7 cm; Wt 73.5 kg
[~2023-01-07 11:26] MED LIST changes: +ACHD5005 PO; +ATOR10TA PO; +BUSP5TAB59 PO; +CETI10CA PO; +ESCI20TA PO; +IBUP200C11 PO; +LOSA1TAB20 PO; +MIRA50TA PO; +OMEP20CA18 PO
[2023-01-07] MEDS ORDERED: NS IV 1000 ML 1,000 ML IV STA ×2 (11:56→14:06)
--- NOTE | 2023-01-07 12:01 | ED General ---
General Chief Complaint: General Problems/Pain Stated Complaint: POST OP GALL BLADDER 12/21/22 | WEAKNESS Nursing Triage Note: PT AMB TO ED BY POV WITH C/O DECREASED APETITE, FATIGUE, AND WEAKNESS. PT HAD ANGELA ON 12/21 AND HAS HAD THESE SX SINCE. DENIES PAIN, FEVER, URINARY SX, N/V, SOB. LBM TODAY, NORMAL FOR PT. REPORTS PT HAS ONLY BEEN EATING A FEW SALTINE CRACKERS A DAY. Source of Information: Patient Exam Limitations: No Limitations History of Present Illness Date Seen by Provider: January 07, 2023 Time Seen by Provider: 11:58 Initial Comments Patient is a 77-year-old male who presents to ED with decreased appetite, fatigue and weakness. Patient had his gallbladder removed December 21. This was performed by Dr. Castano. Since the surgery he has had significant decrease in intake. According to not wanting to eat. Patient ate saltine crackers for the first 2 to 3 days. Started to drink maybe 1-2 protein shakes daily. Has not wanting to drink much water or Pedialyte. He has had some mild right sided upper abdominal pain but no pain today. No fever. At night according to patient is just wanting to lie down and sleep. Seems slightly confused at night but patient is tired. States he is urinating without any difficulties. Denies cough, chest pain, shortness of breath, headache or dizziness. States he did have a soft bowel movement yesterday. Patient denies fever, vomiting, dysuria, hematuria Allergies and Home Medications Allergies Coded Allergies: naproxen (Unverified Allergy, Unknown, 09/07/19) Patient Home Medication List Home Medication List Reviewed: Yes Aspirin (Aspirin EC) 81 Mg Tablet.dr, 81 MG PO HS, (Reported) Entered as Reported by: DORIAN FUENTES on 01/07/231552 Last Action: Reviewed Atorvastatin Calcium (Atorvastatin Calcium) 10 Mg Tablet, 10 MG PO HS, (Repo rted) Entered as Reported by: DORIAN FUENTES on 01/07/231552 Last Action: Reviewed B Complex with Vitamin C (Super B with Vit C) 1 Each Capsule, 1 EACH PO DAILY, (Reported) Entered as Reported by: DORIAN FUENTES on 01/07/231552 Last Action: Reviewed Cetirizine HCl (Zyrtec) 10 Mg Capsule, 10 MG PO HS, (Reported) Entered as Reported by: PHIL KENNEDY on 12/21/221038 Last Action: Reviewed Cholecalciferol (Vitamin D3) (Vitamin D3) 50 Mcg (2000 Unit) Tablet, 50 MCG PO DAILY, (Reported) Entered as Reported by: DORIAN FUENTES on 01/07/231552 Last Action: Reviewed Escitalopram Oxalate (Escitalopram Oxalate) 20 Mg Tablet, 20 MG PO HS, (Reported) Entered as Reported by: DORIAN FUENTES on 01/07/231552 Last Action: Reviewed Lactobacillus Acidophilus ([place] Acidophilus) 20 Billion Cell Capsule, 1 EACH PO HS, (Reported) Entered as Reported by: DORIAN FUENTES on 01/07/231552 Last Action: Reviewed Losartan Potassium (Losartan Potassium) 50 Mg Tablet, 50 MG PO HS, (Reported) Entered as Reported by: DORIAN FUENTES on 01/07/231552 Last Action: Reviewed Mirabegron (Myrbetriq) 50 Mg Tab.er.24h, 50 MG PO HS, (Reported) Entered as Reported by: PHIL KENNEDY on 12/21/221038 Last Action: Reviewed Multivitamin (Multivitamin) 1 Each Tablet, 1 EACH PO DAILY, (Reported) Entered as Reported by: DORIAN FUENTES on 01/07/231552 Last Action: Reviewed Omeprazole (Omeprazole) 20 Mg Capsule., 20 MG PO DAILY, (Reported) Entered as Reported by: PHIL KENNEDY on 12/21/221038 Last Action: Reviewed Discontinued Medications Aspirin ([place] Aspirin) 81 Mg Tablet., 81 MG PO DAILY, (Reported) Discontinued Reason: Duplicate Order Entered as Reported by: MEHDI GARCIA on 12/02/12 1244 Last Action: Discontinued Atorvastatin Calcium (Lipitor) 10 Mg Tablet, 10 MG PO HS, (Reported) Discontinued Reason: Duplicate Order Entered as Reported by: PHIL KENNEDY on 12/21/221038 Last Action: Discontinued Buspirone HCl (Buspirone HCl) 5 Mg Tablet, 5 MG PO DAILY, (Reported) Discontinued Reason: Duplicate Order Entered as Reported by: PHIL KENNEDY on 12/21/221038 Last Action: Discontinued Cyanocobalamin (Vitamin B12) 1,000 Mcg Tablet.sa, 1,000 MCG PO, (Reported) Discontinued Reason: Duplicate Order Entered as Reported by: MEHDI GARCIA on 12/02/12 124 Last Action: Discontinued Escitalopram Oxalate (Lexapro) 20 Mg Tablet, 20 MG PO DAILY, (Reported) Discontinued Reason: Duplicate Order Entered as Reported by: PHIL KENNEDY on 12/21/22 1039 Last Action: Discontinued Hydrocodone/Acetaminophen (Hydrocodone-Acetamin 5-325 mg) 5 Mg-325 Mg Tablet, 1 TAB PO Q8H PRN for PAIN-MODERATE (5-7) Discontinued Reason: Duplicate Order Prescribed by: PATRICIA CASTANO on 12/21/22 1231 Last Action: Discontinued Ibuprofen (Advil) 200 Mg Capsule, 200 MG PO PRN, (Reported) Discontinued Reason: Duplicate Order Entered as Reported by: PHIL KENNEDY on 12/21/22 1039 Last Action: Discontinued Losartan/Hydrochlorothiazide (Losartan-Hctz 50-12.5 mg Tab) 50 Mg-12.5 Mg Tablet, 1 EACH PO DAILY, (Reported) Discontinued Reason: Duplicate Order Entered as Reported by: PHIL KENNEDY on 12/21/22 1039 Last Action: Discontinued Multivitamin (Multi-Vitamin Daily) 1 Each Tablet, 1 EACH PO, (Reported) Discontinued Reason: Duplicate Order Entered as Reported by: MEHDI GARCIA on 12/02/121243 Last Action: Discontinued Vitamin E Acid Succinate (Vitamin E) 100 Unit Tablet, 100 UNIT PO, (Reported) Discontinued Reason: Duplicate Order Entered as Reported by: MEHDI GARCIA on 12/02/121243 Last Action: Discontinued Review of Systems Review of Systems Constitutional: No chills, No diaphoresis; malaise, weakness EENTM: No ear pain, No blurred vision, No double vision, No dental problems, No mouth pain, No mouth swelling, No throat pain, No throat swelling Respiratory: No cough, No dyspnea on exertion, No short of breath Cardiovascular: No chest pain Gastrointestinal: abdominal pain; No diarrhea, No nausea, No vomiting Genitourinary: No decreased output, No discharge Musculoskeletal: No back pain, No joint pain Skin: No change in color, No change in hair/nails All Other Systems Reviewed Negative Unless Noted: Yes Past Fgswlrc-Ibeyhw-Ypeilx Hx Patient Social History Tobacco Use?: No Use of E-Cig and/or Vaping dev: No Substance use?: No Alcohol Use?: No Pt feels they are or have been: No Immunizations Up To Date Influenza Vaccine Up-to-Date: Yes; Up-to-Date First/Initial COVID19 Vaccinat: X4 Second COVID19 Vaccination Andrew: X4 Third COVID19 Vaccination Date: X4 Seasonal Allergies Seasonal Allergies: Yes Past Medical History Surgery/Hospitalization HX: Hypertension ANGELA Surgeries: Yes Bladder Surgery, Orthopedic Respiratory: Yes Sleep Apnea, COPD Currently Using CPAP: Yes Hypertension Neurological: No Sexually Transmitted Disease: No Genitourinary: Yes (urolift) Kidney Stones Gastrointestinal: Yes Gall Bladder Disease Fractures Endocrine: No HEENT: Yes Cataract Loss of Vision: Denies Hearing Impairment: Hearing Aide Right, Hearing Aide Left Cancer: No Psychosocial: Yes ADD/ADHD, Depression Integumentary: No Blood Disorders: No Adverse Reaction/Blood Tranf: No Physical Exam Vital Signs Vital Signs - First Documented 01/07/23 11:42 Temp 36.6 Pulse 90 Resp 16 B/P (MAP) 137/71 (93) Pulse Ox 95 O2 Delivery Room Air Capillary Refill : Less Than 3 Seconds Height, Weight, BMI Height: '" Weight: lbs. oz. kg; 26.00 BMI Method: General Appearance: No Apparent Distress, WD/WN Eyes: Bilateral Eye Normal Inspection, Bilateral Eye PERRL, Bilateral Eye EOMI HEENT: PERRL/EOMI, TMs Normal, Normal ENT Inspection, Pharynx Normal Neck: Full Range of Motion, Normal Inspection, Non Tender, Supple Respiratory: Chest Non Tender, Lungs Clear, Normal Breath Sounds, No Accessory Muscle Use, No Respiratory Distress Cardiovascular: Regular Rate, Rhythm, No Edema, No Gallop, No JVD Gastrointestinal: Normal Bowel Sounds, No Organomegaly, Non Tender, Soft, Other (Healing surgical wounds to the abdomen. No surrounding redness or swelling. Soft abdomen) Back: Normal Inspection, No CVA Tenderness, No Vertebral Tenderness Extremity: Normal Capillary Refill, Normal Inspection, Normal Range of Motion, Non Tender Neurologic/Psychiatric: Alert, Oriented x3, No Motor/Sensory Deficits, Normal Mood/Affect, global compensation analyst II-XII Norm as Tested Skin: Normal Color, Warm/Dry Focused Exam Lactate Level 01/07/23 13:53: Lactic Acid Level 0.92 Lactic Acid Level Laboratory Tests Test 01/07/23 13:53 Lactic Acid Level 0.92 MMOL/L (0.50-2.00) Progress/Results/Core Measures Suspected Sepsis SIRS Temperature: Pulse: 90 Respiratory Rate: 16 Laboratory Tests 01/07/23 12:00: White Blood Count 18.6H Blood Pressure 137 /71 Mean: 93 01/07/23 13:53: Lactic Acid Level 0.92 Laboratory Tests 01/07/23 12:00: Creatinine 0.87, Platelet Count 472H, Total Bilirubin 0.9 01/07/23 14:38: INR Comment 1.2 Results/Orders Lab Results Laboratory Tests Test 01/07/23 12:00 01/07/23 12:10 01/07/23 13:53 01/07/23 14:38 Range/Units White Blood Count 18.6 H 4.3-11.0 10^3/uL Red Blood Count 3.25 L 4.30-5.52 10^6/uL Hemoglobin 10.6 L 13.3-17.7 g/dL Hematocrit 31 L 40-54 % Mean Corpuscular Volume 94 80-99 fL Mean Corpuscular Hemoglobin 33 25-34 pg Mean Corpuscular Hemoglobin Concent 35 32-36 g/dL Red Cell Distribution Width 12.2 10.0-14.5 % Platelet Count 472 H 130-400 10^3/uL Mean Platelet Volume 8.2 L 9.0-12.2 fL Immature Granulocyte % (Auto) 1 % Neutrophils (%) (Auto) 88 H 42-75 % Lymphocytes (%) (Auto) 5 L 12-44 % Monocytes (%) (Auto) 7 0-12 % Eosinophils (%) (Auto) 0 0-10 % Basophils (%) (Auto) 0 0-10 % Neutrophils # (Auto) 16.3 H 1.8-7.8 10^3/uL Lymphocytes # (Auto) 0.9 L 1.0-4.0 10^3/uL Monocytes # (Auto) 1.2 H 0.0-1.0 10^3/uL Eosinophils # (Auto) 0.0 0.0-0.3 10^3/uL Basophils # (Auto) 0.0 0.0-0.1 10^3/uL Immature Granulocyte # (Auto) 0.1 0.0-0.1 10^3/uL Neutrophils % (Manual) 93 % Lymphocytes % (Manual) 3 % Monocytes % (Manual) 3 % Band Neutrophils 1 % Blood Morphology Comment NORMAL Sodium Level 129 L 135-145 MMOL/L Potassium Level 3.1 L 3.6-5.0 MMOL/L Chloride Level 95 L 98-107 MMOL/L Carbon Dioxide Level 22 21-32 MMOL/L Anion Gap 12 5-14 MMOL/L Blood Urea Nitrogen 16 7-18 MG/DL Creatinine 0.87 0.60-1.30 MG/DL Estimat Glomerular Filtration Rate 88 BUN/Creatinine Ratio 18 Glucose Level 121 H 70-105 MG/DL Calcium Level 8.6 8.5-10.1 MG/DL Corrected Calcium 9.5 8.5-10.1 MG/DL Magnesium Level 1.3 L 1.6-2.4 MG/DL Total Bilirubin 0.9 0.1-1.0 MG/DL Aspartate Amino Transf (AST/SGOT) 59 H 5-34 U/L Alanine Aminotransferase (ALT/SGPT) 49 0-55 U/L Alkaline Phosphatase 174 H 40-136 U/L Total Protein 6.5 6.4-8.2 GM/DL Albumin 2.9 L 3.2-4.5 GM/DL Lipase 22 8-78 U/L Urine Color YELLOW Urine Clarity CLEAR Urine pH 6.0 5-9 Urine Specific [place] 1.010 L 1.016-1.022 Urine Protein 1+ H NEGATIVE Urine Glucose (UA) NEGATIVE NEGATIVE Urine Ketones NEGATIVE NEGATIVE Urine Nitrite NEGATIVE NEGATIVE Urine Bilirubin NEGATIVE NEGATIVE Urine Urobilinogen 1.0 < = 1.0 MG/DL Urine Leukocyte Esterase NEGATIVE NEGATIVE Urine RBC (Auto) NEGATIVE NEGATIVE Urine RBC RARE /HPF Urine WBC RARE /HPF Urine Squamous Epithelial Cells RARE /HPF Urine Crystals PRESENT H /LPF Urine Amorphous Sediment RARE SHABANA URATES H /LPF Urine Bacteria NEGATIVE /HPF Urine Casts NONE /LPF Urine Mucus NEGATIVE /LPF Urine Culture Indicated NO Lactic Acid Level 0.92 0.50-2.00 MMOL/L Prothrombin Time 15.2 H 12.2-14.7 SEC INR Comment 1.2 0.8-1.4 My Orders Orders - JOSEPH SHEPHERD Cbc With Automated Diff (01/07/23 11:56) Comprehensive Metabolic Panel (01/07/23 11:56) Lipase (01/07/23 11:56) Magnesium (01/07/23 11:56) Chest 1 View, Ap/Pa Only (01/07/23 11:56) Ns Iv 1000 Ml (Sodium Chloride 0.9%) (01/07/23 11:56) Ua Culture If Indicated (01/07/23 11:56) Ct Abdomen/Pelvis W (01/07/23 11:56) Manual Differential (01/07/23 12:00) Iohexol Injection (Omnipaque 350 Mg/Ml 1 (01/07/23 12:30) Ns (Ivpb) (Sodium Chloride 0.9% Ivpb Bag (01/07/23 12:30) Blood Culture (01/07/23 13:35) Lactic Acid Analyzer (01/07/23 13:35) Blood Culture (01/07/23 13:40) Ed Admission (Communication) (01/07/23 13:57) Cefepime Injection (Maxipime Injection) (01/07/23 14:00) Potassium Cl 10meq/50ml Ivpb (Kcl 10 Meq (01/07/23 14:00) Ns Iv 1000 Ml (Sodium Chloride 0.9%) (01/07/23 14:06) Ns Iv 1000 Ml (Sodium Chloride 0.9%) (01/07/23 14:08) Medications Given in ED Current Medications Medications Dose Ordered Sig/Librado Route Start Time Stop Time Status Last Admin Dose Admin Cefepime HCl 1000 mg/Sodium Chloride 50 ml @ 100 mls/hr ONCE ONCE IV 01/07/23 14:00 01/07/23 14:29 DC 01/07/23 14:42 100 MLS/HR Iohexol 100 ml ONCE ONCE IV 01/07/23 12:30 01/07/23 12:32 DC 01/07/23 12:45 80 ML Potassium Chloride 50 ml @ 50 mls/hr ONCE ONCE IV 01/07/23 14:00 01/07/23 14:59 DC 01/07/23 14:41 50 MLS/HR Sodium Chloride 100 ml ONCE ONCE IV 01/07/23 12:30 01/07/23 12:32 DC 01/07/23 12:45 80 ML Vital Signs/I&O 01/07/23 11:42 Temp 36.6 Pulse 90 Resp 16 B/P (MAP) 137/71 (93) Pulse Ox 95 O2 Delivery Room Air Capillary Refill : Less Than 3 Seconds Blood Pressure Mean: 93 Departure Communication (PCP) Reviewed previous ER visits, H&P, lab testing, surgical notes. Patient had a cholecystectomy performed by Dr. Castano on December 21. Since the surgery has not been wanting to eat or drink. Decreased appetite. Some right-sided abdominal pain since the surgery but no specific pain today. No fever. No vomiting or diarrhea. On arrival patient vital signs stable. Denies of any specific cough. Has been using his spirometer. Denies feeling short of breath or having chest pain. On exam the soft abdomen. Surgical sites appear to be healing without evidence of cellulitis. Due to current complaint general lab work, chest x-ray CT abdomen and pelvis rule out postop complications, pneumonia. Urinalysis was ordered. CBC showed an elevated white blood count 18. Hemoglobin of 10.6 dropped from 13 on December 20. Elevated platelets. Chemistry showed sodium 131, chloride 97, potassium 3.1, magnesium 1.3. Patient was started on IV potassium 10 mill equivalent. Patient was given a liter of fluid initially. Patient was given a second liter of fluid. Chest x-ray concerning for right pleural effu jaquan versus pneumonia. CT abdomen and pelvis shows a complex subcapsular fluid collection with trace amounts of air and adjacent edema. Suspicious for infected collection. New small right pleural effusion. No obvious pleural thickening or loculation. There is subadjacent atelectasis in the right middle lower lobes. Pneumonia superimposed cannot be excluded. Patient Was started on cefepime for potential pneumonia. Patient was discussed with Dr. Castano general surgeon who saw patient here in the ER. Did not seem concerned that this was infected fluid collection. Dr. Castano did recommend a guided drainage of the fluid collection. This was discussed with Dr. Ackerman by Dr. Castano who may perform procedure today or tomorrow. Recommend starting antibiotic for pneumonia. Patient was discussed with Dr. DURANT who felt like this is more of a surgical case and wanted me to admit to Dr. Castano. Dr. Castano agreed to admit. Patient was given IV potassium 10 meq. Currently n.p.o. patient afebrile. No current pain at this time. magnesium oral supplement Impression Primary Impression: Pneumonia Additional Impressions: Intraabdominal fluid collection Hypokalemia Hypomagnesemia Disposition: ADMITTED INPATIENT Condition: Stable Admissions Decision to Admit Reason: Admit from ER (General) Decision to Admit/Date: January 07, 2023 Time/Decision to Admit Time: 13:39 Departure-Patient Inst. Referrals: KEENA ZEPEDA MD (PCP) Primary Care Physician MIKO DURANT MD (Family) Primary Care Physician JOSEPH SHEPHERD January 07, 2023 12:01
[2023-01-07 12:10] LABS: BASOPHILS % (AUTO) 0 % (0-10); EOSINOPHILS % (AUTO) 0 % (0-10); HEMATOCRIT 31 % (40-54); HEMOGLOBIN 10.6 g/dL (13.3-17.7); LYMPHOCYTES # (AUTO) 0.9 10^3/uL (1.0-4.0); LYMPHOCYTES % (AUTO) 5 % (12-44); MEAN CORPUSCULAR HEMOGLOBIN 33 pg (25-34); MEAN CORPUSCULAR HGB CONC 35 g/dL (32-36); MEAN CORPUSCULAR VOLUME 94 fL (80-99); MEAN PLATELET VOLUME 8.2 fL (9.0-12.2); MONOCYTES # (AUTO) 1.2 10^3/uL (0.0-1.0); MONOCYTES % (AUTO) 7 % (0-12); NEUTROPHILS # (AUTO) 16.3 10^3/uL (1.8-7.8); NEUTROPHILS % (AUTO) 88 % (42-75); PLATELET COUNT 472 10^3/uL (130-400); WHITE BLOOD COUNT 18.6 10^3/uL (4.3-11.0)
[2023-01-07 12:17] LABS: BILIRUBIN,URINE NEGATIVE (NEGATIVE); CLARITY,URINE CLEAR; COLOR,URINE YELLOW; GLUCOSE, URINE (UA) NEGATIVE (NEGATIVE); KETONES,URINE NEGATIVE (NEGATIVE); LEUKOCYTE ESTERASE ,URINE NEGATIVE (NEGATIVE); NITRITE,URINE NEGATIVE (NEGATIVE); PROTEIN,URINE 1+ (NEGATIVE)
[2023-01-07 12:20] LABS: ALBUMIN 2.9 GM/DL (3.2-4.5)
[2023-01-07 12:21] LABS: POTASSIUM 3.1 MMOL/L (3.6-5.0)
[2023-01-07 12:22] LABS: CALCIUM 8.6 MG/DL (8.5-10.1)
[2023-01-07 12:23] LABS: TOTAL PROTEIN 6.5 GM/DL (6.4-8.2)
[2023-01-07 12:25] LABS: BILIRUBIN,TOTAL 0.9 MG/DL (0.1-1.0)
[2023-01-07 12:27] LABS: CREATININE SERUM 0.87 MG/DL (0.60-1.30)
[2023-01-07 12:29] LABS: MAGNESIUM 1.3 MG/DL (1.6-2.4)
[2023-01-07] MEDS ORDERED: NS 100 ML (IVPB) BAG IV ONE (12:30)
[2023-01-07] MEDS ORDERED: IOHEXOL 350 MG/ML 100 ML (OMNIPAQUE 350) VIAL IV ONE (12:30)
[2023-01-07 12:34] LABS: AMORPHOUS SEDIMENT,UR RARE AMOR URATES /LPF; BACTERIA,URINE NEGATIVE /HPF; RBC,URINE RARE /HPF; SQUAMOUS EPITHELIAL CELL,UR RARE /HPF; WBC,URINE RARE /HPF
[2023-01-07 12:36] LABS: BAND NEUTROPHILS 1 %; LYMPHOCYTES % (MANUAL) 3 %; MONOCYTES % (MANUAL) 3 %; NEUTROPHILS % (MANUAL) 93 %; RBC MORPH NORMAL
--- NOTE | 2023-01-07 13:06 | Diagnostic Imaging Report ---
INDICATION: Cough. COMPARISON: 01/15/2022. FINDINGS: There is a right pleural effusion and subjacent lower lobe consolidation. While some of this is atelectasis, pneumonia is suspected. The left lung and pleural space are negative. There is no failure pattern. IMPRESSION: Right basilar pleural fluid and infiltrate. Dictated by: Dictated on workstation # [id number]
--- NOTE | 2023-01-07 13:12 | Diagnostic Imaging Report ---
PROCEDURE: CT abdomen and pelvis with contrast. TECHNIQUE: Multiple contiguous axial images were obtained through the abdomen and pelvis after administration of intravenous contrast. Auto Exposure Controls were utilized during the CT exam to meet ALARA standards for radiation dose reduction. All CT scans use one or more of the following dose optimizing techniques: Automated exposure control, MA and/or KvP adjustment based on patient size and exam type or iterative reconstruction. INDICATION: Diminished appetite, fatigue, and weakness since cholecystectomy was performed on December 21. COMPARISON: Exam is compared with CT abdomen and pelvis of 12/20/2022. FINDINGS: A new right dependent pleural effusion layers to 3.9 cm in thickness. Some subpleural infiltrate or atelectasis in the right middle lobe and right lower lobe is adjacent to the major fissure. Left lung base and pleura are negative. Lateral to the right hepatic lobe and distorting its contour is a probable complex subcapsular fluid collection measuring 13 cm AP with 5.4 cm transverse thickness and roughly 10 cm cephalocaudal height. At its superior margin, there is a small bubble of intraluminal gas. There is some adjacent stranding of the fat, and an infected collection could not be excluded. There are no radiodense ductal calculi. There is no bile duct dilatation. The pancreas and peripancreatic fat are normal. There is no hydronephrosis. The spleen and adrenals are negative. The atherosclerotic aorta is nonaneurysmal. There is a 2 mm punctate calculus in the left renal lower pole calyx. There is a noninflamed sigmoid diverticulosis. There are implant seeds in the prostate which has not enlarged. The urinary bladder is grossly unremarkable but not well distended limiting its evaluation. There is no ileus or bowel obstruction, and no pathological fecal loading. IMPRESSION: 1. Complex perihepatic subcapsular fluid collection with trace amounts of air and adjacent edema. Superiorly, this abuts the undersurface of the diaphragm and is suspicious for an infected collection. There is a new small right pleural effusion. No obvious pleural thickening or loculation, but there is subjacent atelectasis in the right middle and lower lobes. Pneumonia superimposed could not be excluded. 2. No biliary dilatation or opaque choledocholithiasis with negative appendix and noninflamed sigmoid diverticulosis. Dictated by: Dictated on workstation # [id number]
[2023-01-07] MEDS ORDERED: CEFEPIME INJECTION 1,000 MG in NS (IVPB) 50 ML IV ONE (14:00)
[2023-01-07] MEDS ORDERED: POTASSIUM CL 10MEQ/50ML IVPB 50 ML IV ONE (14:00)
[2023-01-07] MEDS ORDERED: NS IV 1000 ML 1,000 ML ONE (14:08)
--- NOTE | 2023-01-07 14:19 | History & Physical-Surgical ---
History of Present Illness History of Present Illness Patient Consulted On(rene/time) 01/07/23 14:13 Time Seen by Provider: 13:32 History of Present Illness Surgery asked to admit pt regarding Pneumonia and possible Subcapsular Hepatic Abscess HPI per ED: PT AMB TO ED BY POV WITH C/O DECREASED APETITE, FATIGUE, AND WEAKNESS. PT HAD ANGELA ON 12/21 AND HAS HAD THESE SX SINCE. DENIES PAIN, FEVER, URINARY SX, N/V, SOB. LBM TODAY, NORMAL FOR PT. REPORTS PT HAS ONLY BEEN EATING A FEW, SALTINE CRACKERS A DAY. Patient is a 77-year-old male who presents to ED with decreased appetite, fatigue and weakness. Patient had his gallbladder removed December 21. This was performed by Dr. Castano. Since the surgery he has had significant decrease in intake. According to not wanting to eat. Patient ate saltine crackers for the first 2 to 3 days. Started to drink maybe 1-2 protein shakes daily. Has not wanting to drink much water or Pedialyte. He has had some mild right sided upper abdominal pain but no pain today. No fever. At night according to p atient is just wanting to lie down and sleep. Seems slightly confused at night but patient is tired. States he is urinating without any difficulties. Denies cough, chest pain, shortness of breath, headache or dizziness. States he did have a soft bowel movement yesterday. Patient denies fever, vomiting, dysuria, hematuria When I saw pt in the ER he was laying in bed comfortably in no acute distress. He denied pain and states he really hasn't had pain in a while; when he did have it, it was RUQ but points to almost flank. He is weak and has not been able to eat. also states he really wasn't using his Incentive Spirometer at home; "only when I could actually get him to use it". They deny fever at home. Allergies and Home Medications Allergies Coded Allergies: naproxen (Unverified Allergy, Unknown, 09/07/19) Patient Home Medication List Home Medication List Reviewed: Yes Aspirin ([place] Aspirin) 81 Mg Tablet., 81 MG PO DAILY, (Reported) Entered as Reported by: MEHDI GARCIA on 12/02/12 2664 Atorvastatin Calcium (Lipitor) 10 Mg Tablet, 10 MG PO HS, (Reported) Entered as Reported by: PHIL KENNEDY on 12/21/22 1039 Buspirone HCl (Buspirone HCl) 5 Mg Tablet, 5 MG PO DAILY, (Reported) Entered as Reported by: PHIL KENNEDY on 12/21/22 1039 Cetirizine HCl (Zyrtec) 10 Mg Capsule, 10 MG PO DAILY, (Reported) Entered as Reported by: PHIL KENNEDY on 12/21/22 1039 Cyanocobalamin (Vitamin B12) 1,000 Mcg Tablet.sa, 1,000 MCG PO, (Reported) Entered as Reported by: MEHDI GARCIA on 12/02/12 1244 Escitalopram Oxalate (Lexapro) 20 Mg Tablet, 20 MG PO DAILY, (Reported) Entered as Reported by: PHIL KENNEDY on 12/21/22 1039 Hydrocodone/Acetaminophen (Hydrocodone-Acetamin 5-325 mg) 5 Mg-325 Mg Tablet, 1 TAB PO Q8H PRN for PAIN-MODERATE (5-7) Prescribed by: PATRICIA CASTANO on 12/21/22 1231 Ibuprofen (Advil) 200 Mg Capsule, 200 MG PO PRN, (Reported) Entered as Reported by: PHIL KENNEDY on 12/21/22 1039 Losartan/Hydrochlorothiazide (Losartan-Hctz 50-12.5 mg Tab) 50 Mg-12.5 Mg Tablet, 1 EACH PO DAILY, (Reported) Entered as Reported by: PHIL KENNEDY on 12/21/22 1039 Mirabegron (Myrbetriq) 50 Mg Tab.er.24h, 50 MG PO DAILY, (Reported) Entered as Reported by: PHIL KENNEDY on 12/21/22 1039 Multivitamin (Multi-Vitamin Daily) 1 Each Tablet, 1 EACH PO, (Reported) Entered as Reported by: MEHDI GARCIA on 12/02/12 1244 Omeprazole (Omeprazole) 20 Mg Capsule.dr, 20 MG PO DAILY, (Reported) Entered as Reported by: PHIL KENNEDY on 12/21/22 1039 Vitamin E Acid Succinate (Vitamin E) 100 Unit Tablet, 100 UNIT PO, (Reported) Entered as Reported by: MEHDI GARCIA on 12/02/12 1244 Past Zcingsd-Wakhcd-Ipzkdj Hx Patient Social History Smoking Status: Former Smoker Former Smoker, Quit: Dec 21, 2021 Type Used: Pipe Recent Hopitalizations: No Alcohol Use?: No Have you traveled recently?: No Seasonal Allergies Seasonal Allergies: Yes Surgeries History of Surgeries: Yes Surgeries: Bladder Surgery, Gallbladder, Orthopedic Respiratory History of Respiratory Disorde: Yes Respiratory Disorders: Sleep Apnea, COPD Cardiovascular History of Cardiac Disorders: Yes Cardiac Disorders: Hypertension Neurological History of Neurological Disord: No Reproductive System Sexually Transmitted Disease: No Genitourinary History of Genitourinary Disor: Yes (urolift) Genitourinary Disorders: Kidney Stones Gastrointestinal History of Gastrointestinal Di: Yes Gastrointestinal Disorders: Gall Bladder Disease Musculoskeletal History of Musculoskeletal Dis: Yes Musculoskeletal Disorders: Arthritis, Fractures Endocrine History of Endocrine Disorders: No HEENT History of HEENT Disorders: Yes HEENT Disorders: Cataract Loss of Vision: Denies Hearing Impairment: Hard of Hearing, Hearing Aide Right, Hearing Aide Left Cancer History of Cancer: No Psychosocial History of Psychiatric Problem: Yes Behavioral Health Disorders: ADD/ADHD, Anxiety, Depression Integumentary History of Skin or Integumenta: No Blood Transfusions History of Blood Disorders: No Adverse Reaction to a Blood Tr: No Family Medical History Significant Family History: Heart Disease (Father), Cancer (Grandmother), Hypertension (Father), Other Conditions/Hx (Mother had "mental problems") Review of Systems-General Constitutional: No fever; malaise, weakness EENTM: No blurred vision, No double vision, No mouth swelling Respiratory: No cough; dyspnea on exertion; No hemoptysis Cardiovascular: No edema, No palpitations Gastrointestinal: No abdominal pain, No jaundice; loss of appetite; No melena, No nausea, No vomiting Genitourinary: No dysuria, No frequency, No hematuria Musculoskeletal: joint pain, joint swelling, muscle pain Skin: No change in color, No change in hair/nails Psychiatric/Neurological: Anxiety, Depressed; Denies Seizure Physical Exam-General Problems Physical Exam Vital Signs Vital Signs - First Documented 01/07/23 11:42 Temp 36.6 Pulse 90 Resp 16 B/P (MAP) 137/71 (93) Pulse Ox 95 O2 Delivery Room Air Capillary Refill : Less Than 3 Seconds General Appearance: WD/WN, no apparent distress Eyes: Bilateral Eye PERRL, Bilateral Eye Abnormal EOM HEENT: pharynx normal; No scleral icterus (R), No scleral icterus (L) Neck: non-tender, supple Respiratory: lungs clear, normal breath sounds, no respiratory distress, no accessory muscle use, other (decreased BS at right base and dullness to percussion) Cardiovascular: regular rate, rhythm, no murmur Gastrointestinal: non tender, soft, no organomegaly, hernia (umbilical) Rectal: deferred Back: CVA tenderness (R); No CVA tenderness (L) Extremities: no pedal edema, no calf tenderness, normal capillary refill Neurologic/Psychiatric: alert, oriented x 3 Skin: normal color, warm/dry Lymphatic: no adenopathy (neck, axilla or groin) Data Review Labs Laboratory Tests 01/07/23 12:00: White Blood Count 18.6H, Red Blood Count 3.25L, Hemoglobin 10.6L, Hematocrit 31L , Mean Corpuscular Volume 94, Mean Corpuscular Hemoglobin 33, Mean Corpuscular Hemoglobin Concent 35, Red Cell Distribution Width 12.2, Platelet Count 472H, Mean Platelet Volume 8.2L, Immature Granulocyte % (Auto) 1, Neutrophils (%) (Auto) 88H, Lymphocytes (%) (Auto) 5L, Monocytes (%) (Auto) 7, Eosinophils (%) (Auto) 0, Basophils (%) (Auto) 0, Neutrophils # (Auto) 16.3H, Lymphocytes # (Auto) 0.9L, Monocytes # (Auto) 1.2H, Eosinophils # (Auto) 0.0, Basophils # (Auto) 0.0, Immature Granulocyte # (Auto) 0.1, Neutrophils % (Manual) 93, Lymphocytes % (Manual) 3, Monocytes % (Manual) 3, Band Neutrophils 1, Blood Morphology Comment NORMAL, Sodium Level 129L, Potassium Level 3.1L, Chloride Level 95L, Carbon Dioxide Level 22, Anion Gap 12, Blood Urea Nitrogen 16, Creatinine 0.87, Estimat Glomerular Filtration Rate 88, BUN/Creatinine Ratio 18, Glucose Level 121H, Calcium Level 8.6, Corrected Calcium 9.5, Magnesium Level 1.3L, Total Bilirubin 0.9, Aspartate Amino Transf (AST/SGOT) 59H, Alanine Aminotransferase (ALT/SGPT) 49, Alkaline Phosphatase 174H, Total Protein 6.5, Albumin 2.9L, Lipase 22 01/07/23 12:10: Urine Color YELLOW, Urine Clarity CLEAR, Urine pH 6.0, Urine Specific Joice 1.010L, Urine Protein 1+H, Urine Glucose (UA) NEGATIVE, Urine Ketones NEGATIVE, Urine Nitrite NEGATIVE, Urine Bilirubin NEGATIVE, Urine Urobilinogen 1.0, Urine Leukocyte Esterase NEGATIVE, Urine RBC (Auto) NEGATIVE, Urine RBC RARE, Urine WBC RARE, Urine Squamous Epithelial Cells RARE, Urine Crystals PRESENTH, Urine Amorphous Sediment RARE SHABANA URATESH, Urine Bacteria NEGATIVE, Urine Casts NONE, Urine Mucus NEGATIVE, Urine Culture Indicated NO 01/07/23 13:53: Radiology Date of Exam:01/07/23 CT ABDOMEN/PELVIS W PROCEDURE: CT abdomen and pelvis with contrast. TECHNIQUE: Multiple contiguous axial images were obtained through the abdomen and pelvis after administration of intravenous contrast. Auto Exposure Controls were utilized during the CT exam to meet ALARA standards for radiation dose reduction. All CT scans use one or more of the following dose optimizing techniques: Automated exposure control, MA and/or KvP adjustment based on patient size and exam type or iterative reconstruction. INDICATION: Diminished appetite, fatigue, and weakness since cholecystectomy was performed on December 21. COMPARISON: Exam is compared with CT abdomen and pelvis of 12/20/2022. FINDINGS: A new right dependent pleural effusion layers to 3.9 cm in thickness. Some subpleural infiltrate or atelectasis in the right middle lobe and right lower lobe is adjacent to the major fissure. Left lung base and pleura are negative. Lateral to the right hepatic lobe and distorting its contour is a probable complex subcapsular fluid collection measuring 13 cm AP with 5.4 cm transverse thickness and roughly 10 cm cephalocaudal height. At its superior margin, there is a small bubble of intraluminal gas. There is some adjacent stranding of the fat, and an infected collection could not be excluded. There are no radiodense ductal calculi. There is no bile duct dilatation. The pancreas and peripancreatic fat are normal. There is no hydronephrosis. The spleen and adrenals are negative. The atherosclerotic aorta is nonaneurysmal. There is a 2 mm punctate calculus in the left renal lower pole calyx. There is a noninflamed sigmoid diverticulosis. There are implant seeds in the prostate which has not enlarged. The urinary bladder is grossly unremarkable but not well distended limiting its evaluation. There is no ileus or bowel obstruction, and no pathological fecal loading. IMPRESSION: 1. Complex perihepatic subcapsular fluid collection with trace amounts of air and adjacent edema. Superiorly, this abuts the undersurface of the diaphragm and is suspicious for an infected collection. There is a new small right pleural effusion. No obvious pleural thickening or loculation, but there is subjacent atelectasis in the right middle and lower lobes. Pneumonia superimposed could not be excluded. 2. No biliary dilatation or opaque choledocholithiasis with negative appendix and noninflamed sigmoid diverticulosis. Dictated on workstation # [id number] Dict: 01/07/23 1255 Trans: 01/07/23 1311 [id number] Interpreted by: SHERON SR Assessment/Plan Assessment/Plan Admission Diagonsis Pneumonia Subcapsular Hepatic fluid collection Hypokalemia Hypomagnesemia Hypertension Admission Status: Observation Assessment/Plan Pneumonia Subcapsular Hepatic fluid collection Hypokalemia Hypomagnesemia Hypertension I personally reviewed the old CT and this new one; I then went over it with Dr. Ackerman and discussed drainage. I also discussed the case with the ED provider. Pt will be admitted for treatment of Pneumonia with IV ABX and will get drainage of fluid on the liver. I will also replace his Potassium and Magnesium. I will also restart his HTN meds. He can go on a regular diet once he has drainage performed. Will get IV fluids, pain meds as needed and anti-emetics if needed. At this point he may only need to stay one night, and can try to switch over to PO ABX for the pneumonia; will probably depend on the results of liver drainage. PATRICIA CASTANO DO January 07, 2023 14:19
[2023-01-07 14:58] LABS: INR 1.2 (0.8-1.4); PROTHROMBIN TIME PATIENT 15.2 SEC (12.2-14.7)
[2023-01-07 15:05] VITALS: BP 159/70
[2023-01-07] MEDS: PIPERACILLIN SODIUM/TAZOBACTAM 4.5 GM in NS (IVPB) 100 ML IV NR ×3 (15:30→17:34)
[2023-01-07] MEDS ORDERED: CHOL200059 PO (15:53)
[2023-01-07] MEDS ORDERED: ASPI-1238 PO (15:53)
[2023-01-07] MEDS ORDERED: ESCI20TA39 PO (15:53)
[2023-01-07] MEDS ORDERED: ATOR10TA66 PO (15:53)
[2023-01-07] MEDS ORDERED: VITA1CAP42 PO (15:53)
[2023-01-07] MEDS ORDERED: LOSA50TA63 PO (15:53)
[2023-01-07] MEDS ORDERED: MULT-1136 PO (15:53)
[2023-01-07] MEDS ORDERED: LACT460C PO (15:53)
[2023-01-07] MEDS: MAGNESIUM 1 GM/100 ML IVPB 100 ML IV SCH ×2 (16:14→17:34)
[2023-01-07] MEDS: LACTATED RINGERS 1,000 ML IV SCH (17:34)
[2023-01-07 19:58] VITALS: BP 154/70
[2023-01-07] MEDS: PIPERACILLIN SODIUM/TAZOBACTAM 4.5 GM in NS (IVPB) 100 ML IV SCH (21:01)
[2023-01-07] MEDS: HYDROcodone/APAP 5 MG/325 MG (LORTAB) TAB PO PRN (23:24)
[2023-01-07 23:27] VITALS: BP 152/68
[2023-01-08] VITALS (12 sets, daily range): BP systolic 131–155; BP diastolic 57–76
[2023-01-08] MEDS: LACTATED RINGERS 1,000 ML IV SCH ×4 (03:58→21:55)
[2023-01-08] MEDS: PIPERACILLIN SODIUM/TAZOBACTAM 4.5 GM in NS (IVPB) 100 ML IV SCH ×3 (04:32→20:40)
[2023-01-08 05:44] LABS: BASOPHILS % (AUTO) 0 % (0-10); EOSINOPHILS % (AUTO) 0 % (0-10); HEMATOCRIT 28 % (40-54); HEMOGLOBIN 9.5 g/dL (13.3-17.7); LYMPHOCYTES # (AUTO) 0.9 10^3/uL (1.0-4.0); LYMPHOCYTES % (AUTO) 6 % (12-44); MEAN CORPUSCULAR HEMOGLOBIN 32 pg (25-34); MEAN CORPUSCULAR HGB CONC 34 g/dL (32-36); MEAN CORPUSCULAR VOLUME 95 fL (80-99); MEAN PLATELET VOLUME 8.5 fL (9.0-12.2); MONOCYTES # (AUTO) 0.9 10^3/uL (0.0-1.0); MONOCYTES % (AUTO) 6 % (0-12); NEUTROPHILS # (AUTO) 13.6 10^3/uL (1.8-7.8); NEUTROPHILS % (AUTO) 87 % (42-75); PLATELET COUNT 429 10^3/uL (130-400); WHITE BLOOD COUNT 15.6 10^3/uL (4.3-11.0)
[2023-01-08 06:03] LABS: ALBUMIN 2.6 GM/DL (3.2-4.5); BILIRUBIN,TOTAL 0.9 MG/DL (0.1-1.0); CALCIUM 8.6 MG/DL (8.5-10.1); CREATININE SERUM 0.92 MG/DL (0.60-1.30); POTASSIUM 3.2 MMOL/L (3.6-5.0); TOTAL PROTEIN 5.9 GM/DL (6.4-8.2)
[2023-01-08] MEDS: KCL 20 MEQ TAB (K-DUR) PO SCH (06:49)
--- NOTE | 2023-01-08 07:41 | Progress Note - Surgery ---
FRANCISCO YEUNG 01/08/23 0741: Subjective Date Seen by a Provider: January 08, 2023 Time Seen by a Provider: 07:10 Subjective/Events-last exam Patient resting comfortably in bed. patient reports he is doing well. Denies nausea, vomiting, abdominal pain. Reports he ate a bite of a hamburger last ni ght, but hasn't really had an appetite. patient states that he slept well last night. Review of Systems General: No Chills, No Night Sweats HEENT: No Head Aches, No Visual Changes Pulmonary: No Dyspnea, No Cough Cardiovascular: No: Chest Pain, Palpitations Gastrointestinal: No: Nausea, Vomiting, Abdominal Pain Genitourinary: No Dysuria, No Frequency Musculoskeletal: No: neck pain, shoulder pain Neurological: No: Change in speech, Confusion Focused Exam Lactate Level 01/07/23 13:53: Lactic Acid Level 0.92 Objective Exam Vital Signs Date Time Temp Pulse Resp B/P (MAP) Pulse Ox O2 Delivery O2 Flow Rate FiO2 01/08/23 07:18 37.0 82 20 131/64 (86) 90 Room Air 01/08/23 04:28 36.2 62 22 142/69 (93) 95 NIV CPAP 2.00 01/07/23 23:27 37.5 81 18 152/68 (96) 92 Room Air 01/07/23 20:00 Room Air 01/07/23 19:58 37.8 81 17 154/70 (98) 91 Room Air 01/07/23 15:40 Room Air 01/07/23 15:05 37.6 89 18 159/70 (99) 94 Room Air 01/07/23 15:00 87 16 150/73 95 Room Air 01/07/23 11:42 36.6 90 16 137/71 (93) 95 Room Air I & O 01/08/23 07:00 Intake Total 750 ml Balance 750 ml Capillary Refill : Less Than 3 Seconds General Appearance: No Apparent Distress, WD/WN HEENT: PERRL/EOMI Neck: Full Range of Motion Respiratory: Chest Non Tender, No Accessory Muscle Use, No Respiratory Distress, Decreased Breath Sounds (R lung base) Cardiovascular: Regular Rate, Rhythm, No Edema, No Murmur Peripheral Pulses: 3+ Radial Pulses (R), 3+ Radial Pulses (L) Gastrointestinal: non tender, soft; No tenderness; other (healing surgical wounds with no redness, swelling, drainage) Extremity: Non Tender, No Pedal Edema Neurologic/Psychiatric: Alert, Oriented x3 Skin: Normal Color, Warm/Dry Results Lab Laboratory Tests 01/07/23 12:00: White Blood Count 18.6H, Red Blood Count 3.25L, Hemoglobin 10.6L, Hematocrit 31L , Mean Corpuscular Volume 94, Mean Corpuscular Hemoglobin 33, Mean Corpuscular Hemoglobin Concent 35, Red Cell Distribution Width 12.2, Platelet Count 472H, Mean Platelet Volume 8.2L, Immature Granulocyte % (Auto) 1, Neutrophils (%) (Auto) 88H, Lymphocytes (%) (Auto) 5L, Monocytes (%) (Auto) 7, Eosinophils (%) (Auto) 0, Basophils (%) (Auto) 0, Neutrophils # (Auto) 16.3H, Lymphocytes # (Auto) 0.9L, Monocytes # (Auto) 1.2H, Eosinophils # (Auto) 0.0, Basophils # (Auto) 0.0, Immature Granulocyte # (Auto) 0.1, Neutrophils % (Manual) 93, Lymphocytes % (Manual) 3, Monocytes % (Manual) 3, Band Neutrophils 1, Blood Morphology Comment NORMAL, Sodium Level 129L, Potassium Level 3.1L, Chloride Level 95L, Carbon Dioxide Level 22, Anion Gap 12, Blood Urea Nitrogen 16, Creatinine 0.87, Estimat Glomerular Filtration Rate 88, BUN/Creatinine Ratio 18, Glucose Level 121H, Calcium Level 8.6, Corrected Calcium 9.5, Magnesium Level 1.3L, Total Bilirubin 0.9, Aspartate Amino Transf (AST/SGOT) 59H, Alanine Aminotransferase (ALT/SGPT) 49, Alkaline Phosphatase 174H, Total Protein 6.5, Albumin 2.9L, Lipase 22 01/07/23 12:10: Urine Color YELLOW, Urine Clarity CLEAR, Urine pH 6.0, Urine Specific Pool 1.010L, Urine Protein 1+H, Urine Glucose (UA) NEGATIVE, Urine Ketones NEGATIVE, Urine Nitrite NEGATIVE, Urine Bilirubin NEGATIVE, Urine Urobilinogen 1.0, Urine Leukocyte Esterase NEGATIVE, Urine RBC (Auto) NEGATIVE, Urine RBC RARE, Urine WBC RARE, Urine Squamous Epithelial Cells RARE, Urine Crystals PRESENTH, Urine Amorphous Sediment RARE SHABANA URATESH, Urine Bacteria NEGATIVE, Urine Casts NONE, Urine Mucus NEGATIVE, Urine Culture Indicated NO 01/07/23 13:53: Lactic Acid Level 0.92 01/07/23 14:38: Prothrombin Time 15.2H, INR Comment 1.2 01/08/23 05:20: White Blood Count 15.6H, Red Blood Count 2.94L, Hemoglobin 9.5L, Hematocrit 28L, Mean Corpuscular Volume 95, Mean Corpuscular Hemoglobin 32, Mean Corpuscular Hemoglobin Concent 34, Red Cell Distribution Width 12.3, Platelet Count 429H, Mean Platelet Volume 8.5L, Immature Granulocyte % (Auto) 1, Neutrophils (%) (Auto) 87H, Lymphocytes (%) (Auto) 6L, Monocytes (%) (Auto) 6, Eosinophils (%) (Auto) 0, Basophils (%) (Auto) 0, Neutrophils # (Auto) 13.6H, Lymphocytes # (Auto) 0.9L, Monocytes # (Auto) 0.9, Eosinophils # (Auto) 0.0, Basophils # (Auto) 0.0, Immature Granulocyte # (Auto) 0.1, Sodium Level 134L, Potassium Level 3.2L, Chloride Level 100, Carbon Dioxide Level 24, Anion Gap 10, Blood U eileen Nitrogen 12, Creatinine 0.92, Estimat Glomerular Filtration Rate 85, BUN/Creatinine Ratio 13, Glucose Level 111H, Calcium Level 8.6, Corrected Calcium 9.7, Total Bilirubin 0.9, Aspartate Amino Transf (AST/SGOT) 63H, Alanine Aminotransferase (ALT/SGPT) 51, Alkaline Phosphatase 162H, Total Protein 5.9L, Albumin 2.6L Assessment/Plan Assessment/Plan Assessment/Plan Pneumonia Subcapsular Hepatic fluid collection Hypokalemia Hypomagnesemia Hypertension Potassium 3.2 this morning. BP normal this morning after restarting patients HTN medications. Plan for drainage of fluid on he liver. PATRICIA GUSTAFSON DO 01/08/23 1039: Subjective Time Seen by a Provider: 09:44 Subjective/Events-last exam Pt seen sitting up in chair, he just got back from CT guided drainage. He has no complaints. Review of Systems General: Malaise Pulmonary: No Dyspnea, No Cough Cardiovascular: No: Chest Pain, Palpitations Gastrointestinal: No: Nausea, Vomiting, Abdominal Pain Objective Exam General Appearance: No Apparent Distress, Thin HEENT: PERRL/EOMI, Moist Mucous Membranes Respiratory: Chest Non Tender, No Accessory Muscle Use, No Respiratory Di stress, Decreased Breath Sounds (R lung base) Cardiovascular: Regular Rate, Rhythm, No Murmur Gastrointestinal: non tender, soft, other (healing surgical wounds with no redness, swelling, drainage. Has drain coming out of right flank) Extremity: No Calf Tenderness, No Pedal Edema Neurologic/Psychiatric: Alert, Oriented x3 Assessment/Plan Assessment/Plan Assessment/Plan Pneumonia Subcapsular Hepatic fluid collection - s/p drainage Hypokalemia - improving Hypomagnesemia - resolved Hypertension - restarted home meds Potassium 3.2 this morning. BP normal this morning after restarting patients HTN medications. Fluid in bag looks purulent, I already spoke with Dr. Ackerman and they are going to send it for culture and sensitivity. I told pt and his I would like to keep him at least one more day on IV ABX, his WBC did come down from yesterday; but still above normal. I also talked with them about possible causes of the subcapsular liver abscess; it could have been from GB stone, could have come from lung. It's also possible the liver abscess caused the pneumonia and pleural effusion. He could even have two different things going on. Hopefully the IV ABX will take care of it and we will focus treatment once we know the bacteria. All questions answered to their satisfaction. Supervisory-Addendum Brief Verification & Attestation Participated in pt care: history, MDM, physical Personally performed: exam, history, MDM, supervision of care Care discussed with: Medical Student Procedures: n/a Verification and Attestation of Medical Student E/M Service A medical student performed and documented this service. I then reviewed and verified all information documented by the medical student and made modifications to such information, when appropriate. I personally performed a physical exam, medical decision making and then discussed any differences between the notes and made revisions as necessary to create one note. Patricia Gustafson , 01/08/23 , 10:41 FRANCISCO YEUNG January 08, 2023 07:41 PATRICIA GUSTAFSON DO January 08, 2023 10:39
[2023-01-08] MEDS ORDERED: LIDOCAINE 1% INJ 10 ML VIAL INJ ONE (08:15)
[2023-01-08] MEDS ORDERED: MIDAZOLAM 2 MG/2 ML (VERSED) VIAL IVP ONE (08:15)
[2023-01-08] MEDS ORDERED: fentaNYL INJ 100 MCG/2 ML AMP IVP ONE (08:15)
--- NOTE | 2023-01-08 09:49 | Pre-Op Note & Conscious Sedat ---
Pre-Operative Progress Note Date of Available H&P: January 08, 2023 Date H&P Reviewed: January 08, 2023 Time H&P Reviewed: 08:00 Pre-Op Diagnosis: abdominal fluid collection Moderate Sedation PreProcedure Time 08:00 ASA Score 2 Airway Lungs Heart ASA score ASA 1: a normal healthy patient ASA 2: a patient with a mild systemic disease (mid diabetes, controlled hypertension, obesity ASA 3: a patient with a severe systemic disease that limits activity (angina, COPD, prior Myocardial infarction) ASA 4: a patient with an incapacitating disease that is a constant threat to life (CHF, renal failure) ASA 5: a moribund patient not expected to survive 24 hrs. (ruptured aneurysm) ASA 6: a declared brain- patient whose organs are being harvested. For emergent operations, add the letter E after the classification Mallampati Classification Grade 2 Sedation Plan Analgesia, Amnesia, Plan communicated to team members, Discussed options with patient/fam, Discussed risks with patient/fam The patient is an appropriate candidate to undergo the planned procedure, sedation, and anesthesia. The patient immediately re-assessed prior to indication. AZAR GALARZA MD January 08, 2023 09:49
--- NOTE | 2023-01-08 10:24 | Diagnostic Imaging Report ---
INDICATION: RT abdominal fluid collection drainage. The patient presents for CT-guided drain placement. TECHNIQUE: All CT scans use one or more of the following dose optimizing techniques: automated exposure control, MA and/or KvP adjustment based on patient size and exam type or iterative reconstruction. DETAILS OF THE PROCEDURE: The patient was brought to the CT suite and placed on the table in the supine position. Axial imaging through the abdomen was performed to evaluate for an appropriate entry site. The procedure was performed utilizing conscious sedation with Radiology nursing and constant patient monitoring. The patient was given a total of 50 mcg of fentanyl intravenously. The total procedure time was 4 minutes. The right abdomen was prepped and draped in the usual sterile fashion. A small amount of 1% lidocaine was utilized for local anesthesia. The liver subcapsular fluid collection was accessed using a Yueh needle. The Yueh was exchanged over an 035 Amplatz guidewire. The tract was dilated with 6 and 8-Kiswahili dilators. Next, an 8.2-Kiswahili all-purpose pigtail drain was placed over the guidewire and formed in the subcapsular collection. The inner stiffeners and wires were removed. Followup imaging shows good placement. Purulent material was aspirated which will be sent to the Lab for culture. The drain was affixed to the patient's skin and placed to a Clari drain. The patient tolerated the procedure well and left the Department in stable condition. IMPRESSION: Successful CT-guided liver subcapsular fluid collection drain placement utilizing conscious sedation. Dictated by: Dictated on workstation # [id number]
[2023-01-08] MEDS: HYDROcodone/APAP 5 MG/325 MG (LORTAB) TAB PO PRN (19:36)
--- NOTE | 2023-01-08 20:01 | Consultation ---
History of Present Illness History of Present Illness Patient Consulted On(andrew/time) 01/07/23 1830 Date Seen by Provider: January 07, 2023 Time Seen by Provider: 18:30 Reason for Visit: abdominal pain and leukocytosis History of Present Illness Pt is a 77 y/o male who was admitted to the hospital after presenting to the ER for abdominal pain, lack of appetite, and failure to thrive at home after having his gallbladder removed at the end of November. Pt's report is that he does not have pain, but he does admit to crying out in pain when he sits up from lying down or when he is jostled acutely in the car. He has not been eating more than a few saltine crackers, or drinking a little bit of a protein drink. He admits to having a severely low appetite, and wanting to sleep almost continuously. In the ER he was found to have a white count of 18, and a fluid collection versus abscess of his liver with mild atelectasis versus pneumonia Allergies and Home Medications Allergies Coded Allergies: naproxen (Unverified Allergy, Unknown, 09/07/19) Patient Home Medication List Home Medication List Reviewed: Yes Aspirin (Aspirin EC) 81 Mg Tablet.dr, 81 MG PO HS, (Reported) Entered as Reported by: DORIAN FUENTES on 01/07/231552 Last Action: Held Atorvastatin Calcium (Atorvastatin Calcium) 10 Mg Tablet, 10 MG PO HS, (Reported) Entered as Reported by: DORIAN FUENTES on 01/07/231552 Last Action: Continued B Complex with Vitamin C (Super B with Vit C) 1 Each Capsule, 1 EACH PO DAILY, (Reported) Entered as Reported by: DORIAN FUENTES on 01/07/231552 Last Action: Held Cetirizine HCl (Zyrtec) 10 Mg Capsule, 10 MG PO HS, (Reported) Entered as Reported by: PHIL KENNEDY on 12/21/22 1039 Last Action: Converted Cholecalciferol (Vitamin D3) (Vitamin D3) 50 Mcg (2000 Unit) Tablet, 50 MCG PO DAILY, (Reported) Entered as Reported by: DORIAN FUENTES on 01/07/231552 Last Action: Held Escitalopram Oxalate (Escitalopram Oxalate) 20 Mg Tablet, 20 MG PO HS, (Reported) Entered as Reported by: DORIAN FUENTES on 01/07/231552 Last Action: Converted Lactobacillus Acidophilus (Florajen Acidophilus) 20 Billion Cell Capsule, 1 EACH PO HS, (Reported) Entered as Reported by: DORIAN FUENTES on 01/07/231552 Last Action: Held Losartan Potassium (Losartan Potassium) 50 Mg Tablet, 50 MG PO HS, (Reported) Entered as Reported by: DORIAN FUENTES on 01/07/231552 Last Action: Continued Mirabegron (Myrbetriq) 50 Mg Tab.er.24h, 50 MG PO HS, (Reported) Entered as Reported by: PHIL KENNEDY on 12/21/221038 Last Action: Converted Multivitamin (Multivitamin) 1 Each Tablet, 1 EACH PO DAILY, (Reported) Entered as Reported by: DORIAN FUENTES on 01/07/231552 Last Action: Held Omeprazole (Omeprazole) 20 Mg Capsule.dr, 20 MG PO DAILY, (Reported) Entered as Reported by: PHIL KENNEDY on 12/21/221038 Last Action: Continued Discontinued Medications Aspirin (Hart Aspirin) 81 Mg Tablet.dr, 81 MG PO DAILY, (Reported) Discontinued Reason: Duplicate Order Entered as Reported by: MEHDI GARCIA on 12/02/121243 Last Action: Discontinued Atorvastatin Calcium (Lipitor) 10 Mg Tablet, 10 MG PO HS, (Reported) Discontinued Reason: Duplicate Order Entered as Reported by: PHIL KENNEDY on 12/21/221038 Last Action: Discontinued Buspirone HCl (Buspirone HCl) 5 Mg Tablet, 5 MG PO DAILY, (Reported) Discontinued Reason: Duplicate Order Entered as Reported by: PHIL KENNEDY on 12/21/221038 Last Action: Discontinued Cyanocobalamin (Vitamin B12) 1,000 Mcg Tablet.sa, 1,000 MCG PO, (Reported) Discontinued Reason: Duplicate Order Entered as Reported by: MEHDI GARCIA on 12/02/121243 Last Action: Discontinued Escitalopram Oxalate (Lexapro) 20 Mg Tablet, 20 MG PO DAILY, (Reported) Discontinued Reason: Duplicate Order Entered as Reported by: PHIL KENNEDY on 12/21/221038 Last Action: Discontinued Hydrocodone/Acetaminophen (Hydrocodone-Acetamin 5-325 mg) 5 Mg-325 Mg Tablet, 1 TAB PO Q8H PRN for PAIN-MODERATE (5-7) Discontinued Reason: Duplicate Order Prescribed by: PATRICIA CASTANO on 12/21/22 1231 Last Action: Discontinued Ibuprofen (Advil) 200 Mg Capsule, 200 MG PO PRN, (Reported) Discontinued Reason: Duplicate Order Entered as Reported by: PHIL KENNEDY on 12/21/22 1039 Last Action: Discontinued Losartan/Hydrochlorothiazide (Losartan-Hctz 50-12.5 mg Tab) 50 Mg-12.5 Mg Tablet, 1 EACH PO DAILY, (Reported) Discontinued Reason: Duplicate Order Entered as Reported by: PHIL KENNEDY on 12/21/22 1039 Last Action: Discontinued Multivitamin (Multi-Vitamin Daily) 1 Each Tablet, 1 EACH PO, (Reported) Discontinued Reason: Duplicate Order Entered as Reported by: MEHDI GARCIA on 12/02/12 1244 Last Action: Discontinued Vitamin E Acid Succinate (Vitamin E) 100 Unit Tablet, 100 UNIT PO, (Reported) Discontinued Reason: Duplicate Order Entered as Reported by: MEHDI GARCIA on 12/02/12 1244 Last Action: Discontinued Past Xtxsplo-[id number]-Xlcwte Hx Patient Social History Marrital Status: Living Status: lives at home with [place] in [place] Employed/Student: retired (preschool assistant teacher/counselor) Tobacco Use?: No Smoking Status: Former Smoker Use of E-Cig and/or Vaping dev: No Substance use?: No Alcohol Use?: No Pt feels they are or have been: No Immunizations Up To Date First/Initial COVID19 Vaccinat: X4 Second COVID19 Vaccination Andrew: X4 Seasonal Allergies Seasonal Allergies: Yes Current Status Advance Directives: No Communicates: Verbally Primary Language: Botswanan Preferred Spoken Language: B[place]an Is interpretation needed?: No Sensory deficits: Hearing impairment Implanted or Applied Medical D: CPAP Past Medical History Surgeries: Bladder Surgery, Gallbladder, Orthopedic Sleep Apnea, COPD Currently Using CPAP: Yes Hypertension Sexually Transmitted Disease: No Kidney Stones Gall Bladder Disease Arthritis, Fractures Cataract Loss of Vision: Denies Hearing Impairment: Hard of Hearing, Hearing Aide Right, Hearing Aide Left ADD/ADHD, Anxiety, Depression Blood Disorders: No Adverse Reaction/Blood Tranf: No Family Medical History Reviewed Nursing Family Hx Heart Disease (Father), Cancer (Grandmother), Hypertension (Father), Other Conditions/Hx (Mother had "mental problems") Review of Systems Review of Systems General: No Chills; Fatigue, Malaise, Appetite (decreased) HEENT: No Head Aches, No Visual Changes, No Dysphasia, No Sore Throat Pulmonary: Dyspnea, Cough Cardiovascular: No: Chest Pain, Palpitations, Edema Gastrointestinal: Abdominal Pain; No: Nausea, Vomiting Genitourinary: No Dysuria, No Frequency Musculoskeletal: No: neck pain, shoulder pain Neurological: Weakness; No: Change in speech, Confusion All Other Systems Reviewed All Other Systems Reviewed: Yes Physical Exam Vital Signs Vital Signs - First Documented 01/07/23 01/08/23 11:42 04:28 Temp 36.6 Pulse 90 Resp 16 B/P (MAP) 137/71 (93) Pulse Ox 95 O2 Delivery Room Air O2 Flow Rate 2.00 Capillary Refill : Less Than 3 Seconds Height, Weight, BMI Height: '" Weight: lbs. oz. kg; 24.64 BMI Method: General Appearance: No Apparent Distress, Chronically ill; No Mild Distress Eyes: Bilateral Eye Normal Inspection, Bilateral Eye PERRL, Bilateral Eye EOMI HEENT: PERRL/EOMI, Pharynx Normal Neck: Full Range of Motion, Normal Inspection, Non Tender, Supple Respiratory: Chest Non Tender, Lungs Clear, Normal Breath Sounds, No Accessory Muscle Use, No Respiratory Distress Cardiovascular: Regular Rate, Rhythm Gastrointestinal: Normal Bowel Sounds, Soft, Tenderness (RUQ) Rectal: Deferred Back: Normal Inspection, No Vertebral Tenderness Extremity: Normal Capillary Refill, Non Tender, No Calf Tenderness, No Pedal Edema; No Pedal Edema Neurologic/Psychiatric: Alert, Oriented x3, No Motor/Sensory Deficits, Normal Mood/Affect Skin: Normal Color, Warm/Dry Lymphatic: No Adenopathy Assessment/Plan Assessment/Plan Admission Dx Liver Abscess Hepatic fluid collection Mild pneumonia Pleural effusion Leukocytosis Chronic COPD Hyponatremia Hypokalemia Dehydration Weakness Decreased appetite Hypomagnesemia Admission Status: Inpatient Order (span 2 midnights) Reason for Inpatient Admission: inpatient admission for hepatic abscess and mild pneumonia with leukocytosis - will require at least 48-72 hours for iv antibiotics, liver drainage, culture report Assessment and Plan Liver Abscess Hepatic fluid collection Mild pneumonia Pleural effusion Leukocytosis Chronic COPD Hyponatremia Hypokalemia Dehydration Weakness Decreased appetite Hypomagnesemia Liver Abscess, Hepatic fluid collection - planning on CT guided liver abscess drainage - Pt on iv Zosyn, will have fluid sent for culture Mild pneumonia with Pleural effusion with Leukocytosis - pt on IV zosyn, repeat cxr in the next 24 - 48 hours. Chronic COPD - monitor symptoms Hyponatremia, Hypokalemia, Hypomagnesemia due to Dehydration - replace with IV fluids and IV supplementation Weakness with Decreased appetite - pending symptoms after drainage of his abscess, will have staff walk pt on oshea. dvt prophylaxis with scd's gi prophylaxis with ppi and lactobacillus MIKO DURANT MD January 08, 2023 20:01
--- NOTE | 2023-01-08 20:19 | Progress Note ---
Subjective Subjective Date Seen by Provider: January 08, 2023 Time Seen by Provider: 08:20 Pt seen with and son in room today. He reports he had improved symptoms over the past 24 hours due to IV antibiotics and fluids. He did not eat much last night due to GI upset and decreased appetite. Review of Systems General: No Chills; Fatigue, Malaise, Appetite (decreased) HEENT: No Head Aches, No Visual Changes, No Dysphasia, No Sore Throat Pulmonary: Dyspnea, Cough Cardiovascular: No: Chest Pain, Palpitations, Edema Gastrointestinal: Abdominal Pain; No: Nausea, Vomiting Genitourinary: No Dysuria, No Frequency Musculoskeletal: No: neck pain, shoulder pain Neurological: Weakness; No: Change in speech, Confusion All Other Systems Reviewed All Other Systems Reviewed: Yes Objective Exam Vital Signs Vital Signs Date Time Temp Pulse Resp B/P (MAP) Pulse Ox O2 Delivery O2 Flow Rate FiO2 01/08/23 19:18 37.1 73 18 149/73 (98) 91 Room Air 01/08/23 16:51 37.4 73 18 146/76 (99) 91 Room Air 01/08/23 13:03 36.5 70 20 134/65 (88) 92 Room Air 01/08/23 12:10 36.6 68 20 132/64 (86) 93 Room Air 01/08/23 11:13 36.6 75 20 138/64 (88) 93 Room Air 01/08/23 10:00 36.4 68 20 146/65 (92) 91 01/08/23 09:30 71 20 135/65 (88) 92 Room Air 01/08/23 09:25 65 14 143/57 (85) 90 Room Air 01/08/23 09:20 71 16 151/64 (93) 92 Room Air 01/08/23 09:10 68 20 155/58 (90) 92 Room Air 01/08/23 09:08 Room Air 0.00 01/08/23 08:00 92 Room Air 0.00 01/08/23 07:18 37.0 82 20 131/64 (86) 90 Room Air 01/08/23 04:28 36.2 62 22 142/69 (93) 95 NIV CPAP 2.00 01/07/23 23:27 37.5 81 18 152/68 (96) 92 Room Air I & O 01/08/23 07:00 Intake Total 750 ml Balance 750 ml General Appearance: No Apparent Distress, Chronically ill; No Mild Distress Eyes: Bilateral Eye Normal Inspection, Bilateral Eye PERRL, Bilateral Eye EOMI, Bilateral Eye Abnormal EOM HEENT: PERRL/EOMI, Pharynx Normal Neck: Full Range of Motion, Normal Inspection, Non Tender, Supple Respiratory: Chest Non Tender, Lungs Clear, Normal Breath Sounds, No Accessory Muscle Use, No Respiratory Distress Cardiovascular: Regular Rate, Rhythm Gastrointestinal: Normal Bowel Sounds, Soft, Tenderness (RUQ) Rectal: Deferred Back: Normal Inspection, No Vertebral Tenderness Extremity: Normal Capillary Refill, Non Tender, No Calf Tenderness, No Pedal Edema; No Pedal Edema Neurologic/Psychiatric: Alert, Oriented x3, No Motor/Sensory Deficits, Normal M ood/Affect Skin: Normal Color, Warm/Dry Lymphatic: No Adenopathy Results Lab Laboratory Tests 01/08/23 05:20: White Blood Count 15.6H, Red Blood Count 2.94L, Hemoglobin 9.5L, Hematocrit 28L, Mean Corpuscular Volume 95, Mean Corpuscular Hemoglobin 32, Mean Corpuscular Hemoglobin Concent 34, Red Cell Distribution Width 12.3, Platelet Count 429H, Mean Platelet Volume 8.5L, Immature Granulocyte % (Auto) 1, Neutrophils (%) (Auto) 87H, Lymphocytes (%) (Auto) 6L, Monocytes (%) (Auto) 6, Eosinophils (%) (Auto) 0, Basophils (%) (Auto) 0, Neutrophils # (Auto) 13.6H, Lymphocytes # (Auto) 0.9L, Monocytes # (Auto) 0.9, Eosinophils # (Auto) 0.0, Basophils # (Auto) 0.0, Immature Granulocyte # (Auto) 0.1, Sodium Level 134L, Potassium Level 3.2L, Chloride Level 100, Carbon Dioxide Level 24, Anion Gap 10, Blood Urea Nitrogen 12, Creatinine 0.92, Estimat Glomerular Filtration Rate 85, BUN/Creatinine Ratio 13, Glucose Level 111H, Calcium Level 8.6, Corrected Calcium 9.7, Total Bilirubin 0.9, Aspartate Amino Transf (AST/SGOT) 63H, Alanine Aminotransferase (ALT/SGPT) 51, Alkaline Phosphatase 162H, Total Protein 5.9L, Albumin 2.6L 01/08/23 05:28: Magnesium Level 1.8 Microbiology 01/07/23 Blood Culture - Preliminary, Resulted No growth Assessment/Plan Assessment/Plan Admission Dx Liver Abscess Hepatic fluid collection Mild pneumonia Pleural effusion Leukocytosis Chronic COPD Hyponatremia Hypokalemia Dehydration Weakness Decreased appetite Hypomagnesemia Assessment and Plan Liver Abscess Hepatic fluid collection Mild pneumonia Pleural effusion Leukocytosis Chronic COPD Hyponatremia Hypokalemia Dehydration Weakness Decreased appetite Hypomagnesemia Liver Abscess, Hepatic fluid collection - CT guided liver abscess drainage - PURULENT fluid from drainage - sent for culture. - Pt on iv Zosyn, Mild pneumonia with Pleural effusion with Leukocytosis - improved - pt on IV zosyn, repeat cxr tomorrow. Chronic COPD - monitor symptoms Hyponatremia, Hypokalemia, Hypomagnesemia due to Dehydration - replace with IV fluids and IV supplementation Weakness with Decreased appetite - pending symptoms after drainage of his abscess, will have staff walk pt on oshea. dvt prophylaxis with scd's gi prophylaxis with ppi and lactobacillus Admission Dx Liver Abscess Hepatic fluid collection Mild pneumonia Pleural effusion Leukocytosis Chronic COPD Hyponatremia Hypokalemia Dehydration Weakness Decreased appetite Hypomagnesemia Clinical Quality Measures Admission Status Admission Dx Liver Abscess Hepatic fluid collection Mild pneumonia Pleural effusion Leukocytosis Chronic COPD Hyponatremia Hypokalemia Dehydration Weakness Decreased appetite Hypomagnesemia MIKO DURANT MD January 08, 2023 20:19
[2023-01-08] MEDS: AtorvaSTATin TABLET 10 MG TABLET PO SCH (20:34)
[2023-01-08] MEDS: LOSARTAN 50 MG (COZAAR) TAB PO SCH (20:34)
[2023-01-08] MEDS: LORATADINE (CLARITIN) 10 MG TAB PO SCH (20:35)
[2023-01-08] MEDS: MIRABEGRON 25 MG TAB (MYRBETRIQ) PO SCH (20:36)
[2023-01-08] MEDS ORDERED: NON-FORMULARY MEDICATION 1 EA EA (Cetirizine HCl (Zyrtec) 10 MG) PO SCH (21:00)
[2023-01-09] VITALS (7 sets, daily range): BP systolic 125–158; BP diastolic 67–78
[2023-01-09 05:24] LABS: HEMATOCRIT 26 % (40-54); MEAN CORPUSCULAR HEMOGLOBIN 33 pg (25-34); MEAN CORPUSCULAR HGB CONC 35 g/dL (32-36); MEAN CORPUSCULAR VOLUME 95 fL (80-99); MEAN PLATELET VOLUME 8.7 fL (9.0-12.2); PLATELET COUNT 398 10^3/uL (130-400); WHITE BLOOD COUNT 8.6 10^3/uL (4.3-11.0)
[2023-01-09 05:43] LABS: ALBUMIN 2.4 GM/DL (3.2-4.5)
[2023-01-09 05:44] LABS: POTASSIUM 3.1 MMOL/L (3.6-5.0)
[2023-01-09 05:45] LABS: CALCIUM 8.2 MG/DL (8.5-10.1)
[2023-01-09 05:46] LABS: TOTAL PROTEIN 5.4 GM/DL (6.4-8.2)
[2023-01-09 05:48] LABS: BILIRUBIN,TOTAL 0.5 MG/DL (0.1-1.0)
[2023-01-09 05:50] LABS: CREATININE SERUM 0.79 MG/DL (0.60-1.30)
[2023-01-09 05:53] LABS: MAGNESIUM 1.7 MG/DL (1.6-2.4)
[2023-01-09] MEDS: KCL 20 MEQ TAB (K-DUR) PO SCH (06:10)
[2023-01-09] MEDS: PIPERACILLIN SODIUM/TAZOBACTAM 4.5 GM in NS (IVPB) 100 ML IV SCH ×3 (06:10→20:41)
--- NOTE | 2023-01-09 06:57 | Progress Note - Surgery ---
TESSYRONALDOJERIELIANAFRANCISCO 01/09/23 0657: Subjective Date Seen by a Provider: January 09, 2023 Time Seen by a Provider: 06:45 Subjective/Events-last exam Patient states that he had a small BM this morning. States that he feels much better today than he has over the past week. Last night he was able to eat je llo. Denies abdominal pain, nausea, vomiting, fever. Review of Systems General: No Chills, No Night Sweats HEENT: No Head Aches, No Visual Changes Pulmonary: No Dyspnea, No Cough Cardiovascular: No: Chest Pain, Palpitations Gastrointestinal: No: Nausea, Vomiting, Abdominal Pain Genitourinary: No Dysuria, No Frequency Musculoskeletal: No: neck pain, shoulder pain Neurological: No: Change in speech, Confusion Focused Exam Lactate Level 01/07/23 13:53: Lactic Acid Level 0.92 Objective Exam Vital Signs Date Time Temp Pulse Resp B/P (MAP) Pulse Ox O2 Delivery O2 Flow Rate FiO2 01/09/23 04:54 36.5 67 18 158/70 (99) 96 NIV CPAP 2.00 01/09/23 00:46 36.6 73 18 143/72 (95) 97 NIV CPAP 2.00 01/08/23 20:52 91 Room Air 01/08/23 19:18 37.1 73 18 149/73 (98) 91 Room Air 01/08/23 16:51 37.4 73 18 146/76 (99) 91 Room Air 01/08/23 13:03 36.5 70 20 134/65 (88) 92 Room Air 01/08/23 12:10 36.6 68 20 132/64 (86) 93 Room Air 01/08/23 11:13 36.6 75 20 138/64 (88) 93 Room Air 01/08/23 10:00 36.4 68 20 146/65 (92) 91 01/08/23 09:30 71 20 135/65 (88) 92 Room Air 01/08/23 09:25 65 14 143/57 (85) 90 Room Air 01/08/23 09:20 71 16 151/64 (93) 92 Room Air 01/08/23 09:10 68 20 155/58 (90) 92 Room Air 01/08/23 09:08 Room Air 0.00 01/08/23 08:00 92 Room Air 0.00 01/08/23 07:18 37.0 82 20 131/64 (86) 90 Room Air I & O0 01/09/23 07:00 Intake Total 1710 ml Output Total 450 ml Balance 1260 ml Capillary Refill : Less Than 3 Seconds General Appearance: No Apparent Distress, Chronically ill; No Mild Distress HEENT: PERRL/EOMI Neck: Full Range of Motion, Normal Inspection, Non Tender, Supple Respiratory: Chest Non Tender, Lungs Clear, Normal Breath Sounds, No Accessory Muscle Use, No Respiratory Distress Cardiovascular: Regular Rate, Rhythm; No No Murmur Peripheral Pulses: 3+ Radial Pulses (R), 3+ Radial Pulses (L) Gastrointestinal: non tender, soft, other (healing surgical wounds with no redn ess, swelling, drainage. Has drain coming out of right flank with yusuf purulent fluid in bag) Extremity: Non Tender, No Calf Tenderness, No Pedal Edema Neurologic/Psychiatric: Alert, Oriented x3 Skin: Normal Color, Warm/Dry Lymphatic: No Adenopathy Results Lab Laboratory Tests 01/09/23 05:00: White Blood Count 8.6, Red Blood Count 2.75L, Hemoglobin 9.0L, Hematocrit 26L, Mean Corpuscular Volume 95, Mean Corpuscular Hemoglobin 33, Mean Corpuscular Hemoglobin Concent 35, Red Cell Distribution Width 12.2, Platelet Count 398, Mean Platelet Volume 8.7L, Sodium Level 135, Potassium Level 3.1L, Chloride Level 101, Carbon Dioxide Level 24, Anion Gap 10, Blood Urea Nitrogen 9, Creatinine 0.79, Estimat Glomerular Filtration Rate 91, BUN/Creatinine Ratio 11, Glucose Level 104, Calcium Level 8.2L, Corrected Calcium 9.5, Magnesium Level 1.7, Total Bilirubin 0.5, Aspartate Amino Transf (AST/SGOT) 59H, Alanine Aminotransferase (ALT/SGPT) 52, Alkaline Phosphatase 131, Total Protein 5.4L, Albumin 2.4L Microbiology 01/07/23 Blood Culture - Preliminary, Resulted No growth Assessment/Plan Assessment/Plan Assessment/Plan Hepatic fluid collection pneumonia Hypokalemia Hypomagnesemia Drain still in place however draining has slowed. magnesium stable at 1.7. WBC count has gone down significantly to 8.6. PATRICIA CASTANO DO 01/10/23 1202: Subjective Time Seen by a Provider: 15:01 Subjective/Events-last exam Pt seen and examined, states he still does not really have appetite. He saw Dr. Yap who told him she wanted him to stay one more night. Review of Systems General: Appetite (decreased) Pulmonary: No Dyspnea, No Cough Cardiovascular: No: Chest Pain, Palpitations Gastrointestinal: No: Nausea, Vomiting, Abdominal Pain Objective Exam General Appearance: No Apparent Distress, Chronically ill HEENT: PERRL/EOMI Respiratory: Chest Non Tender, Lungs Clear, No Accessory Muscle Use, No Respiratory Distress, Decreased Breath Sounds (right base) Cardiovascular: Regular Rate, Rhythm, No Murmur Gastrointestinal: non tender, soft, other (healing surgical wounds with no redness, swelling, drainage. Has drain coming out of right flank with serous fluid in bag) Extremity: No Calf Tenderness, No Pedal Edema Neurologic/Psychiatric: Alert, Oriented x3 Assessment/Plan Assessment/Plan Assessment/Plan Pt seen yesterday, note done today. Hepatic fluid collection pneumonia Hypokalemia Hypomagnesemia Drain still in place however draining has slowed. magnesium stable at 1.7. WBC count has gone down significantly to 8.6. Will treat with one more day of IV ABX, encourage PO intake and ambulation. Supervisory-Addendum Brief Verification & Attestation Participated in pt care: history, MDM, physical Personally performed: exam, history, MDM, supervision of care Care discussed with: Medical Student Procedures: n/a Verification and Attestation of Medical Student E/M Service A medical student performed and documented this service. I then reviewed and verified all information documented by the medical student and made modifications to such information, when appropriate. I personally performed a physical exam, medical decision making and then discussed any differences between the notes and made revisions as necessary to create one note. Patricia Castano , 01/10/23 , 12:02 FRANCISCO YEUNG January 09, 2023 06:57 PATRICIA CASTANO DO January 10, 2023 12:02
--- NOTE | 2023-01-09 07:09 | Diagnostic Imaging Report ---
EXAMINATION: Chest 2 view HISTORY: Pneumonia COMPARISON: 01/07/2023 FINDINGS: Heart size and pulmonary vasculature are normal. There is slightly increased size of a small right pleural effusion with right basilar atelectasis or consolidation. Minimal left basilar atelectasis. No pneumothorax. Degenerative changes of the thoracic spine. Osseous structures are otherwise intact. IMPRESSION: 1. Slightly increased size of a small right pleural effusion with adjacent right basilar atelectasis or consolidation. Dictated by: Dictated on workstation # [id number]
[2023-01-09] MEDS: LACTOBACILLUS ACIDOPHILUS (PROBIOTIC) CAPSULE PO SCH ×3 (07:29→18:31)
[2023-01-09] MEDS: LACTATED RINGERS 1,000 ML IV SCH (07:31)
[2023-01-09] MEDS ORDERED: OMEPRAZOLE 20 MG (PriLOSEC) CAP NON-FORMULARY PO SCH (09:00)
[2023-01-09] MEDS: PANTOPRAZOLE 20 MG TABLET (PROTONIX) PO SCH (09:28)
[2023-01-09] MEDS: ENOXAPARIN 40 MG/0.4 ML (LOVENOX) SYR SC SCH (12:20)
[2023-01-09] MEDS: MIRABEGRON 25 MG TAB (MYRBETRIQ) PO SCH (20:41)
[2023-01-09] MEDS: LORATADINE (CLARITIN) 10 MG TAB PO SCH (20:41)
[2023-01-09] MEDS: AtorvaSTATin TABLET 10 MG TABLET PO SCH (20:41)
[2023-01-09] MEDS: LOSARTAN 50 MG (COZAAR) TAB PO SCH (20:41)
[2023-01-09] MEDS: HYDROcodone/APAP 5 MG/325 MG (LORTAB) TAB PO PRN (20:45)
[2023-01-10] MEDS: LACTATED RINGERS 1,000 ML IV SCH ×2 (00:34→13:44)
[2023-01-10 03:06] VITALS: BP 158/65
[2023-01-10] MEDS: PIPERACILLIN SODIUM/TAZOBACTAM 4.5 GM in NS (IVPB) 100 ML IV SCH ×2 (05:37→13:44)
[2023-01-10] MEDS: KCL 20 MEQ TAB (K-DUR) PO SCH (05:37)
--- NOTE | 2023-01-10 06:48 | Progress Note - Surgery ---
FRANCISCO YEUNG 01/10/23 0648: Subjective Date Seen by a Provider: January 10, 2023 Time Seen by a Provider: 06:40 Subjective/Events-last exam Patient reports his appetite is coming back. He has been drinking protein shakes and ate a hamburger yesterday. Patient also states he feels like his energy is coming back. Denies nausea, vomiting or abdominal pain. Review of Systems General: No Chills, No Night Sweats HEENT: No Head Aches, No Visual Changes Pulmonary: No Dyspnea, No Cough Cardiovascular: No: Chest Pain, Palpitations Gastrointestinal: No: Nausea, Vomiting, Abdominal Pain, Diarrhea, Constipation Genitourinary: No Dysuria, No Frequency Musculoskeletal: No: neck pain, shoulder pain Neurological: No: Change in speech, Confusion Focused Exam Lactate Level 01/07/23 13:53: Lactic Acid Level 0.92 Objective Exam Vital Signs Date Time Temp Pulse Resp B/P (MAP) Pulse Ox O2 Delivery O2 Flow Rate FiO2 01/10/23 03:06 36.5 63 18 158/65 (96) 96 NIV CPAP 01/09/23 23:23 36.3 64 20 135/71 (92) 96 NIV CPAP 01/09/23 20:45 Room Air 01/09/23 20:00 37.0 76 18 132/70 (90) 94 Room Air 01/09/23 16:21 36.8 68 17 125/78 (94) 96 Room Air 01/09/23 13:21 Room Air 0.00 01/09/23 11:09 36.5 69 18 128/67 (87) 96 Room Air 01/09/23 08:00 96 Room Air 0.00 01/09/23 07:25 36.6 67 18 158/70 (99) 94 Room Air I & O 01/10/23 07:00 Intake Total 3920 ml Output Total 35 ml Balance 3885 ml Capillary Refill : Less Than 3 Seconds General Appearance: No Apparent Distress, Chronically ill; No Mild Distress HEENT: PERRL/EOMI Neck: Full Range of Motion, Non Tender Respiratory: Chest Non Tender, Lungs Clear, Normal Breath Sounds, No Accessory Muscle Use, No Respiratory Distress Cardiovascular: Regular Rate, Rhythm; No No Murmur Peripheral Pulses: 3+ Radial Pulses (R), 3+ Radial Pulses (L) Gastrointestinal: non tender, soft, other (healing surgical wounds with no redness, swelling, drainage. Has drain coming out of right flank with yusuf purulent fluid in bag) Extremity: Non Tender, No Calf Tenderness, No Pedal Edema Neurologic/Psychiatric: Alert, Oriented x3 Skin: Normal Color, Warm/Dry Lymphatic: No Adenopathy Results Lab Microbiology 01/08/23 Anaerobic Culture - Preliminary, Resulted 01/07/23 Blood Culture - Preliminary, Resulted No growth Assessment/Plan Assessment/Plan Assessment/Plan Hepatic fluid collection pneumonia Hypokalemia Hypomagnesemia Draining present in right flank with yusuf purulent fluid. FREDERICK CASTANO DO 01/10/23 1212: Subjective Time Seen by a Provider: 11:38 Subjective/Events-last exam Pt seen and examined, he is having BMs and eating a little more. He wants to go home. Review of Systems General: Malaise Pulmonary: No Dyspnea, No Cough Cardiovascular: No: Chest Pain, Palpitations Gastrointestinal: No: Nausea, Vomiting, Abdominal Pain Genitourinary: No Dysuria, No Frequency Objective Exam General Appearance: No Apparent Distress, Chronically ill HEENT: PERRL/EOMI Respiratory: Chest Non Tender, Lungs Clear, No Accessory Muscle Use, No Respiratory Distress, Decreased Breath Sounds (right base) Cardiovascular: Regular Rate, Rhythm, No Murmur Gastrointestinal: non tender, soft, other (healing surgical wounds with no redness, swelling, drainage. Has drain coming out of right flank with serous fluid in drain tube) Extremity: Non Tender, No Calf Tenderness Neurologic/Psychiatric: Alert, Oriented x3 Skin: Normal Color, Warm/Dry Assessment/Plan Assessment/Plan Assessment/Plan Hepatic fluid Abscess - growing Gram Negative Bacilli ?Bacteremia - but onl in one bottle (probably not significant) pneumonia Hypokalemia Hypomagnesemia - resolved Draining present in right flank with serous fluid. Will DC pt home on Augmentin, to follow up in office on Saturday and have drain removed. He had no questions. Supervisory-Addendum Brief Verification & Attestation Participated in pt care: history, MDM, physical Personally performed: exam, history, MDM, supervision of care Care discussed with: Medical Student Procedures: n/a Verification and Attestation of Medical Student E/M Service A medical student performed and documented this service. I then reviewed and verified all information documented by the medical student and made modifications to such information, when appropriate. I personally performed a physical exam, medical decision making and then discussed any differences between the notes and made revisions as necessary to create one note. Frederick Castano , 01/10/23 , 12:11 FRANCISCO YEUNG January 10, 2023 06:48 FREDERICK CASTANO DO January 10, 2023 12:12
[2023-01-10 07:52] VITALS: BP 146/73
--- NOTE | 2023-01-10 08:29 | Progress Note ---
Subjective Subjective Date Seen by Provider: January 09, 2023 Time Seen by Provider: 08:45 Pt seen with son in room today. He reports he has improved symptoms after drain was placed He still does not have much of an appetite Review of Systems General: No Chills, No Night Sweats; Fatigue, Appetite (decreased) HEENT: No Head Aches, No Visual Changes Pulmonary: No Dyspnea, No Cough Cardiovascular: No: Chest Pain, Palpitations Gastrointestinal: No: Nausea, Vomiting, Abdominal Pain, Diarrhea, Constipation Genitourinary: No Dysuria, No Frequency Musculoskeletal: No: neck pain, shoulder pain Neurological: No: Change in speech, Confusion All Other Systems Reviewed All Other Systems Reviewed: Yes Objective Exam Vital Signs Vital Signs Date Time Temp Pulse Resp B/P (MAP) Pulse Ox O2 Delivery O2 Flow Rate FiO2 01/10/23 07:52 36.0 75 18 146/73 (97) 93 Room Air 01/10/23 03:06 36.5 63 18 158/65 (96) 96 NIV CPAP 01/09/23 23:23 36.3 64 20 135/71 (92) 96 NIV CPAP 01/09/23 20:45 Room Air 01/09/23 20:00 37.0 76 18 132/70 (90) 94 Room Air 01/09/23 16:21 36.8 68 17 125/78 (94) 96 Room Air 01/09/23 13:21 Room Air 0.00 01/09/23 11:09 36.5 69 18 128/67 (87) 96 Room Air I & O 01/10/23 06:59 Intake Total 3920 ml Output Total 35 ml Balance 3885 ml General Appearance: No Apparent Distress, Chronically ill; No Mild Distress Eyes: Bilateral Eye Normal Inspection, Bilateral Eye PERRL, Bilateral Eye EOMI, Bilateral Eye Abnormal EOM HEENT: PERRL/EOMI Neck: Full Range of Motion, Non Tender Respiratory: Chest Non Tender, Lungs Clear, Normal Breath Sounds, No Accessory Muscle Use, No Respiratory Distress Cardiovascular: Regular Rate, Rhythm; No No Murmur Gastrointestinal: Normal Bowel Sounds, Soft, Tenderness (RUQ - drainin place with biliary drainage with debris in tubing) Rectal: Deferred Back: Normal Inspection, No Vertebral Tenderness Extremity: Non Tender, No Calf Tenderness, No Pedal Edema Neurologic/Psychiatric: Alert, Oriented x3 Skin: Normal Color, Warm/Dry Lymphatic: No Adenopathy Results Lab Microbiology 01/08/23 Anaerobic Culture - Preliminary, Resulted 01/07/23 Blood Culture - Preliminary, Resulted No growth Assessment/Plan Assessment/Plan Admission Dx Liver Abscess Hepatic fluid collection Mild pneumonia Pleural effusion Leukocytosis Chronic COPD Hyponatremia Hypokalemia Dehydration Weakness Decreased appetite Hypomagnesemia Assessment and Plan Liver Abscess Hepatic fluid collection Mild pneumonia Pleural effusion Leukocytosis Chronic COPD Hyponatremia Hypokalemia Dehydration Weakness Decreased appetite Hypomagnesemia Liver Abscess, Hepatic fluid collection - CT guided liver abscess drainage - PURULENT fluid from drainage - sent for culture. - Pt on iv Zosyn, Mild pneumonia with Pleural effusion with Leukocytosis - improved - pt on IV zosyn, repeat cxr showed some pleural effusion, no further infiltrate noted on cxr today. Chronic COPD - monitor symptoms Hyponatremia, Hypokalemia, Hypomagnesemia due to Dehydration - replace with IV fluids and IV supplementation Weakness with Decreased appetite - slightly improved symptoms after drainage of his abscess, will have staff walk pt on oshea. dvt prophylaxis with scd's gi prophylaxis with ppi and lactobacillus Admission Dx Liver Abscess Hepatic fluid collection Mild pneumonia Pleural effusion Leukocytosis Chronic COPD Hyponatremia Hypokalemia Dehydration Weakness Decreased appetite Hypomagnesemia Clinical Quality Measures Admission Status Admission Dx Liver Abscess Hepatic fluid collection Mild pneumonia Pleural effusion Leukocytosis Chronic COPD Hyponatremia Hypokalemia Dehydration Weakness Decreased appetite Hypomagnesemia MIKO DURANT MD January 10, 2023 08:29
[2023-01-10] MEDS: LACTOBACILLUS ACIDOPHILUS (PROBIOTIC) CAPSULE PO SCH ×2 (08:51→13:50)
[2023-01-10] MEDS: PANTOPRAZOLE 20 MG TABLET (PROTONIX) PO SCH (08:51)
[2023-01-10 12:12] VITALS: BP 135/70
[2023-01-10] MEDS ORDERED: AMOX-355 PO (12:13)
--- NOTE | 2023-01-10 12:14 | Discharge Inst-Surgical ---
Discharge Inst-Surgical Depart Medication/Instructions New, Converted or Re-Newed RX: Transmitted to Pharmacy Patient Instructions Follow up Appt: Make appointment for 1 week. [phone] Instructions: No lifting greater than 20 pounds. No strenuous activity. May shower in 24 hours, no tub bath or soaking. Use incentive spirometer at home as directed. No Smoking Skin/Wound Care: May remove bandages in am. You need to leave the drain in place and come to the office to have it removed. Symptoms to Report: Appetite Changes, Extremity Discoloration, Numbness/Tingling, Swelling Increased, Bleeding Excessive, Eyesight Changes, Pain Increased, Urine Color Change, Constipation(Persistent), Fever over 101 degree F, Pain/Pressure in chest, Urinating Difficulty, Cough Up/Vomit Blood, Heart Beat Irreg/Pounding, Pain/Pressure in jaw, Cramps in feet or legs, Lightheadedness, Pain/Pressure in shoulder, Diarrhea(Persistent), Memory Changes Suddenly, Questions/Concerns, Weight gain consecutive days, Dizziness/Fainting, Nausea/Vomiting, Shortness of Breath, Weight gain over 2 pounds If questions or concerns contact your physician Or seek help at emergency department. Activity Activity as Tolerated: Yes Activity Instructions: Avoid Stress to Incision Driving Instructions: No Driving/Refer to Dr. Yu Discharge Diet: No Restrictions Diet After 24 Hours: Clear Liquid if Nauseous If Any Problems/Questions/Issu: Contact Your Physician, Go to Emergency Room Skin/Wound Care Infection Signs and Symptoms: Increased Redness, Foul Odor of Wound, Increased Drainage, Skin Itchy or Has a Rash, Increased Swelling, Temperature Above 101 F Bathing Instructions: PATRICIA Larose DO January 10, 2023 12:13
[2023-01-10] MEDS: ENOXAPARIN 40 MG/0.4 ML (LOVENOX) SYR SC SCH (13:44)
[2023-01-10 16:01] VITALS: BP 166/77
== END 2023-01-10 16:59 | disposition home or self-care (01) | DRG 441 ==
LOC: EDUNIT# 11:26 → ER 11:29 → 4TH 15:01
PROVIDERS: ADMIT Surgery; ATTEND Surgery
PROC: 0F9030Z Drainage of Liver with Drainage Device, Percutaneous Approach (ICD-10-PCS; principal; 2023-01-08)
DX: K75.0 Abscess of liver (principal); J18.9 Pneumonia, unspecified organism; J90 Pleural effusion, not elsewhere classified; E87.1 Hypo-osmolality and hyponatremia; E86.0 Dehydration; E83.42 Hypomagnesemia; E87.6 Hypokalemia; I10 Essential (primary) hypertension; G47.30 Sleep apnea, unspecified; J44.9 Chronic obstructive pulmonary disease, unspecified; F90.9 Attention-deficit hyperactivity disorder, unspecified type; F41.9 Anxiety disorder, unspecified; F32.A Depression, unspecified; R41.0 Disorientation, unspecified; R53.1 Weakness; Z87.891 Personal history of nicotine dependence; Z79.82 Long term (current) use of aspirin; Z79.899 Other long term (current) drug therapy; Z88.6 Allergy status to analgesic agent; H91.93 Unspecified hearing loss, bilateral; Z97.4 Presence of external hearing-aid
CPT/HCPCS: 36415; 71045; 71046; 74177; 77012; 80053; 81000; 83605; 83690; 83735; 85007; 85025; 85027; 85610; 87040; 87070; 87075; 87205

== ENCOUNTER → 2023-05-01 | Outpatient (CLI) | payer MEDICARE, OTHER ==
[~2023-05-01] MED LIST changes: +AMOX-355 PO; +ASPI-1238 PO; +ATOR10TA66 PO; +CHOL200059 PO; +ESCI20TA39 PO; +LACT460C PO; +LOSA50TA63 PO; +MULT-1136 PO; +VITA1CAP42 PO
--- NOTE | 2023-05-01 17:29 | Diagnostic Imaging Report ---
ABDOMEN (KUB) 1 VIEW INDICATION: Kidney stone COMPARISON: CT abdomen and pelvis of 01/07/2023 TECHNIQUE: Supine AP view of the abdomen FINDINGS: No radiographically apparent renal or ureteral stones. Cholecystectomy clips are noted. Calcification in the liver is stable. 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 Stable degenerative changes of the hips and lumbar spine. IMPRESSION: No radiographically apparent urinary tract calculi. Dictated by: Dictated on workstation # [id number]
== END ==
LOC: RAD FS 13:22
PROVIDERS: ATTEND Urology
DX: N20.0 Calculus of kidney (principal)
CPT/HCPCS: 74018

== ENCOUNTER 2023-06-19 12:41 | Outpatient (CLI) | payer MEDICARE, OTHER | END 2023-06-19 13:15 | LOC: SLEEP 12:41 | PROVIDERS: ATTEND Otolaryngology Otolaryngology/Facial Plastic Surgery | DX: G47.33 Obstructive sleep apnea (adult) (pediatric) (principal); G47.31 Primary central sleep apnea | CPT/HCPCS: G0399 ==